=== PATIENT | male | born 1990 | race Caucasian/White ===

== ENCOUNTER 2024-05-07 13:42 | Outpatient (AMB) | payer MEDICAID, SELFPAY ==
[2024-05-07 13:58] VITALS: BP 133/89; PULSE 86; RESP 16; TEMP 36.4; O2SAT 98; BMI 19.9
--- NOTE | 2024-05-07 13:58 | ACNOTE_ITS ---
Vital Signs 05/07/24 13:58 Height 1.7 m Height Method Stated Weight 57.72 kg Weight Measurement Method Standing Scale BMI 19.9 BP 133/89 H Blood Pressure Source Automatic Cuff Blood Pressure Location Left Upper Arm Position Sitting Respiration 16 Pulse 86 Pulse Source Monitor Temp 97.6 F Temp Source Temporal Artery Scan Pulse Oximetry (%) 98 Oxygen Delivery Method Room Air Allergies/Meds Allergies & Medications Allergies No Known Allergies Allergy (Verified 05/07/24 13:59) Medication Reconciliation amlodipine 5 mg tablet 5 mg PO QDAY hypertension #30 tabs 01/02/23 [Rx Confirmed 05/07/24] atorvastatin 80 mg tablet 80 mg PO QHS hyperlipidemia #30 tabs 01/02/23 [Rx Confirmed 05/07/24] flash glucose sensor (ClickDelivery Myriam 2 Sensor kit) #1 ea 01/02/23 [Rx Confirmed 05/07/24] gabapentin 100 mg capsule 100 mg PO TID Peripheral Neuropathy 1 month #90 caps 01/02/23 [Rx Confirmed 05/07/24] metoclopramide HCl 10 mg tablet 10 mg PO TID Gastroparesis #90 tabs 01/02/23 [Rx Confirmed 05/07/24] metoclopramide HCl 10 mg tablet 10 mg PO TID PRN N/V #30 tabs 01/02/23 [Rx Confirmed 05/07/24] metoprolol succinate 25 mg tablet,extended release 24 hr 25 mg PO QDAY Hypertension 1 month #30 tabs 01/02/23 [Rx Confirmed 05/07/24] miscellaneous medical supply (Blood Pressure Cuff) #1 ea 01/02/23 [Rx Confirmed 05/07/24] valsartan 80 mg tablet 80 mg PO QDAY Hypertension #30 tabs 01/02/23 [Rx C onfirmed 05/07/24] ondansetron 4 mg disintegrating tablet 4 mg PO Q6H PRN nausea and vomiting #10 tabs 06/01/23 [Rx Confirmed 05/07/24] blood sugar diagnostic (OneTouch Ultra Test strips) #100 ea 09/12/23 [Rx Confirmed 05/07/24] pen needle, diabetic 31 gauge x 3/16 (Mini Ultra-Thin II) #1,200 ea 09/12/23 [Rx Confirmed 05/07/24] OneTouch Ultra Test (blood sugar diagnostic) #100 ea 09/18/23 [Rx Confirmed 05/07/24] OneTouch Ultra Test (blood sugar diagnostic) #100 ea 10/17/23 [Rx Confirmed 05/07/24] blood-glucose sensor (FreeStyle Myriam 3 Sensor device) #1 ea 10/17/23 [Rx Confirmed 05/07/24] True Metrix Glucose Meter (blood-glucose meter) #1 ea 10/23/23 [Rx Confirmed 05/07/24] blood sugar diagnostic (True Metrix Glucose Test Strip) #100 ea 10/23/23 [Rx Confirmed 05/07/24] blood-glucose meter (Accu-Chek Guide Glucose Meter) #1 ea 11/07/23 [Rx Confirmed 05/07/24] blood sugar diagnostic (Accu-Chek Guide test strips) #100 ea 12/27/23 [Rx Confirmed 05/07/24] insulin aspart U-100 100 unit/mL (3 mL) subcutaneous pen (Novolog FlexPen U-100 Insulin aspart) 1 unit (0.01 mL) subcut TIDACHS Diabetes type 1 #15 mL 05/07/24 [Rx] insulin glargine 100 unit/mL (3 mL) subcutaneous pen (Basaglar KwikPen U-100 Insulin) 15 unit (0.15 mL) subcut QAM Type 1 diabetes mellitus #15 mL 05/07/24 [Rx] terbinafine HCl 250 mg tablet 250 mg PO QDAY 12 weeks #84 tabs 05/07/24 [Rx] MA Intake Visit Data Collection New Patient or Established: Established Patient (seen at [facility] within 3 years) Seen by Clinical Staff ONLY (RN/MA): No Pain Present Currently: No Pain scale:: 0 Pain Scale Used: Kay-Mcbride/Numerical Curatorial Specialist Required: No PCP or OBGYN visit in last 3 months: No Hx Now: No Do You Feel Safe at Home: Yes Authorities Contacted: N/A Smoking Status Smoking Status: Never smoker Immunization / Flu Flu Vaccine in the Last 12 Months: No Flu Vaccine Exclusion Criteria: No Exclusion Criteria Past Medical History Past Medical History NEUROLOGIC: Positive Neurological Disorders and Peripheral Neuropathy (Mild diabetic neropathy); Negative Cerebrovascular Accident, Transient Ischemic Attacks (TIA), Dementia, Alzheimer's Disease, Parkinson's Disease, Brain Tumor, Meningitis, Seizures, Epilepsy, Multiple Sclerosis, Cerebral Palsy, Amyotrophic Lateral Sclerosis (ALS/Ana Gehrig's), Guillain-[place] Syndrome, Spina Bifida, Paralysis, Figueroa's Palsy, Subdural Hematoma, Migraine, Head Trauma, Spinal Cord Injury or Traumatic Brain Injury CARDIAC: Positive Hypertension; Negative Cardiac Disorders, Myocardial Infarction, Cardiac Arrhythmia, Atrial Fibrillation, Angina, Heart Murmur, Coronary Artery Disease, Atherosclerotic Heart Disease, Peripheral Vascular Disease, Hypercholesterolemia, Aneurysm, Congestive Heart Failure, Congenital Heart Disease, Valvular Heart Disease, Rheumatic Fever, Cardiomyopathy, Edema, Pericarditis, Cellulitis, Deep Vein Thrombosis, Hypotension or Varicose Veins RESPIRATORY: Negative Chronic Obstructive Pulmonary Disease (COPD), Asthma, Bronchitis, Emphysema, Pneumonia, Pulmonary Fibrosis, Cystic Fibrosis, Tuberculosis, Pulmonary Embolism, Pulmonary Edema or Sleep Apnea GASTROINTESTINAL: Positive Gastrointestinal Disorders, Esophageal Varices and Gastroesophageal Reflux Disease; Negative Hepatitis, Cirrhosis, Pancreatitis, Celiac Disease, Gall Bladder Disease, Gastrointestinal Bleed, Barahona's Esophagus, Colitis, Ulcerative Colitis, Diverticulitis, Diverticulosis, Ulcer, Colorectal Cancer, Irritable Bowel, Crohn's Disease, Obstructive Bowel, Hiatal Hernia, Hemorrhoids or Obesity GENITOURINARY: Positive Genitourinary Disorders; Negative Renal Disease, Kidney Stones, Polycystic Kidney Disease, Neurogenic Bladder, Inguinal Hernia, Dialysis, Prostate Cancer or Benign Prostatic Hyperpla karson REPRODUCTIVE: Negative Breast Cancer, Genital Herpes, Gonorrhea, Syphilis or Testicular Cancer MUSCULOSKELETAL: Negative Muscular Dystrophy, Myasthenia Gravis, Marfan's Syndrome, Bone Cancer, Arthritis, Rheumatoid Arthritis, Osteoporosis, Degenerative Disk Disease, Gout, Scoliosis, Fibromyalgia, Fractures, Degenerative Joint Disease, Osteomyelitis or Poliovirus ENT: Positive Cataracts; Negative Glaucoma, Blind, Retinal Detachment, Macular Degeneration, Ear Infection, Deafness, Head Trauma or Eye Prosthesis ENDOCRINE: Positive Endocrine Disorders and Diabetes Mellitus Type 1; Negative Diabetes Mellitus Type 2, Hypoglycemia, Payton's Syndrome, Esmeralda's Disease, Hyperthyroidism, Hypothyroidism, Parathyroid Disease, Pituitary Disease, Systemic Lupus Erythematosus, Syndrome of Inappropriate Antidiuretic Hormone (SIADH), Adrenal Disease or Graves' Disease HEMATOLOGIC: Negative Blood Disorders, Anemia, Leukemia, Hemophilia, Thalassemia, Sickle Cell Disease or Clotting Problems PSYCHO/SOCIAL: Positive Recreational Drug Use, Depression and Anxiety; Negative Psychiatric Problems, Schizophrenia, Bipolar Disorder, Behavior Problems, Self-Mutilation, Attention Deficit Disorder, Attention Deficit Hyperactivity Disorder, Depression, Post Traumatic Stress Disorder or Eating Disorder OTHER HISTORY: Positive Hospitalization and Chicken Pox; Negative Down Syndrome, Autism, Developmental Delay, Shingles, Falls, Blood Transfusions, Blood Transfusion Reaction, Anesthesia Reactions, Organ Transplant, Chemotherapy, Radiation Therapy, Hyperbaric Therapy, MRSA, VRSA, Vancomycin-Resistant Enterococci, Human Immunodeficiency Virus (HIV), Measles, Mumps, Rubella (Hungarian Measles), Pertussis, Clostridium Difficile, Breast Cancer, Cervical Cancer, Colorectal Cancer, Lung Cancer, Ovarian Cancer, Prostate Cancer or Testicular Cancer Family History FAMILY HISTORY: Negative Family Psychiatric Problems, Family Respiratory Disorders, Family Cardiac Disorders, Family Gastrointestinal Problems, Family Cancer, Family Surgery or Family Anesthesia Reaction Surgical History SURGICAL: Positive Eye Surgery; Negative Pacemaker, Endocrine Surgery, Thyroidectomy, Ear Surgery, Abdominal Surgery, Nephrectomy, Joint Replacement, Neurologic Surgery, Vasectomy or Organ Transplant Social History SMOKING STATUS: Smoking status: Never smoker SECOND HAND EXPOSURE: second hand exposure: No ALCOHOL: Alcohol Intake: Never ALCOHOL FREQUENCY: Alcohol Intake Frequency: holidays/special occasions only HOUSING: Housing: House LIVES WITH: Lives With: Family Patient Keely Dhillon Social History Living Situation History Housing: House Housing Other:: Patient resides at home with parents. Tobacco History Smoking Status: Never smoker Second Hand Smoke Exposure: No Alcohol History Alcohol Intake: Never Alcohol Intake Frequency: holidays/special occasions only Substance Use History Substance Use: occasional marijuana use Domestic Abuse History Do You Feel Safe at Home: Yes Review of Systems Report any current symptoms Only answer those that you have currently: Past Medical History Past Medical History Have you ever been diagnosed with any of the following: Neurological Problems Cerebrovascular Accident (CVA): No Transient Ischemic Attacks (TIA): No Dementia: No Alzheimer's Disease: No Parkinson's Disease: No Brain Tumor: No Meningitis: No Seizures: No Epilepsy: No Multiple Sclerosis: No Cerebral Palsy: No Amyotrophic Lateral Sclerosis (ALS/Ana Gehrig's): No Guillain-[place] Syndrome: No Spina Bifida: No Paralysis: No Peripheral Neuropathy: Yes (Mild diabetic neropathy) Figueroa's Palsy: No Subdural Hematoma: No Migraine: No Head Trauma: No Spinal Cord Injury: No Traumatic Brain Injury: No Cardiology Problems Myocardial Infarction: No Cardiac Arrhythmia: No Atrial Fibrillation: No Angina: No Heart Murmur: No Coronary Artery Disease: No Atherosclerotic Heart Disease: No Peripheral Vascular Disease: No Hypercholesterolemia: No Aneurysm: No Congestive Heart Failure: No Congenital Heart Disease: No Valvular Heart Disease: No Rheumatic Fever: No Cardiomyopathy: No Edema: No Pericarditis: No Cellulitis: No Deep Vein Thrombosis: No Hypertension: Yes Hypotension: No Varicose Veins: No Respiratory Problems Chronic Obstructive Pulmonary Disease (COPD): No Asthma: No Bronchitis: No Emphysema: No Pneumonia: No Pulmonary Fibrosis: No Tuberculosis: No Pulmonary Embolism: No Pulmonary Edema: No Sleep Apnea: No Stomache/Intestinal Problems Hepatitis: No Cirrhosis: No Pancreatitis: No Celiac Disease: No Gall Bladder Disease: No Gastrointestinal Bleed: No Esophageal Varices: Yes Barahona's Esophagus: No Colitis: No Ulcerative Colitis: No Diverticulitis: No Diverticulosis: No Ulcer: No Colorectal Cancer: No Irritable Bowel: No Crohn's Disease: No Obstructive Bowel: No Hiatal Hernia: No Hemorrhoids: No Gastroesophageal Reflux Disease: Yes Obesity: No Genital/Urinary Problems Renal Disease: No Kidney Stones: No Polycystic Kidney Disease: No Neurogenic Bladder: No Inguinal Hernia: No Dialysis: No Prostate Cancer: No Benign Prostatic Hyperplasia: No Reproductive Problems Breast Cancer: No Genital Herpes: No Gonorrhea: No Syphilis: No Testicular Cancer: No Musculoskeletal Problems Muscular Dystrophy: No Myasthenia Gravis: No Marfan's Syndrome: No Bone Cancer: No Arthritis: No Rheumatoid Arthritis: No Osteoporosis: No Degenerative Disk Disease: No Gout: No Scoliosis: No Fibromyalgia: No Fractures: No Degenerative Joint Disease: No Osteomyelitis: No Poliovirus: No Head,Eye,Nose,Throat Problems Cataracts: Yes Glaucoma: No Blind: No Retinal Detachment: No Macular Degeneration: No Chronic Ear Infections: No Deafness: No Eye Prosthesis: No Endocrine Problems Diabetes Mellitus Type 1: Yes Diabetes Mellitus Type 2: No Hypoglycemia: No Payton's Syndrome: No Esmeralda's Disease: No Hyperthyroidism: No Hypothyroidism: No Parathyroid Disease: No Pituitary Disease: No Systemic Lupus Erythematosus: No Syndrome of Inappropriate Antidiuretic Hormone: No Adrenal Disease: No Graves' Disease: No Blood Problems Anemia: No Leukemia: No Hemophilia: No Thalassemia: No Sickle Cell Disease: No Clotting Problems: No Psychologic Problems Schizophrenia: No Recreational Drug Use: Yes Bipolar Disorder: No Depression: Yes Anxiety: Yes Behavior Problems: No Self-Mutilation: No Attention Deficit Disorder: No Attention Deficit Hyperactivity Disorder: No Depression: No Post Traumatic Stress Disorder: No Eating Disorder: No Other Problems Hospitalization: Yes Down Syndrome: No Autism: No Developmental Delay: No Shingles: No Falls: No Blood Transfusions: No Blood Transfusion Reaction: No Anesthesia Reactions: No Organ Transplant: No Chemotherapy: No Radiation Therapy: No Hyperbaric Therapy: No MRSA: No VRSA: No Vancomycin-Resistant Enterococci: No Human Immunodeficiency Virus (HIV): No Chicken Pox: Yes Measles: No Mumps: No Rubella (Hungarian Measles): No Pertussis: No Clostridium Difficile: No Cervical Cancer: No Lung Cancer: No Ovarian Cancer: No Surgical History Pacemaker: No Thyroidectomy: No History of Present Illness HPI Narrative Meek Lyon is a 34-year-old male with past medical history of hypertension, type 1 diabetes mellitus, gastroparesis, and CKD stage IIIb who presents to [facility] on 05/07 for medication refills. Last follow-up was on 09/2023 for the same and states that he had moved out of town but had recently moved back. Current regimen is 15 units of Basaglar in the morning and 1 unit NovoLog every 20 g of carbohydrates (previously 1:10). Continues to utilize Affine 3 CGM and phone summer showed A1c of 7.4% with time in range of 63% over the last 3 months. Otherwise, he states that he would like to follow-up with Dr. Sorensen as she was managing his blood pressure given his CKD and will send referral to establish care. He does state that he has had fungal infection of bilateral feet for a long time. Thus, will send referral to bullard operator and antifungal cream. States that he also follows up with an hand button splitter yearly. Review of Systems Review of Systems Systems Reviewed: All systems reviewed, normal except as documented Objective/Exam Narrative Physical exam: General: AOx3, no acute distress, able to speak full sentences HEENT: NC/AT, mucous membranes moist, bilateral sclera anicteric Cardiovascular: regular rate and rhythm, S1/S2 present, no murmurs appreciated Pulmonary: clear to auscultation bilaterally, no rales/rhonchi/wheezes Abdominal: soft, non-tender, non-distended, no rebound/guarding, normal bowel sounds present Musculoskeletal: onychomycosis seen on all toenails bilaterally, normal ROM, no peripheral edema Skin: warm and dry, intact Neuro: CN II-XII intact, no focal deficits Assessment & Plan Diagnosis / Problem List (1) Type 1 diabetes mellitus: Status: Acute Qualifiers: Chronic kidney disease stage: stage 3 (moderate) Chronic kidney disease stage 3 subtype: stage 3a (GFR 45-59) Diabetes mellitus complication detail: with chronic kidney disease Diabetes mellitus complication status: with kidney complications Qualified Code(s): E10.22 - Type 1 diabetes mellitus with diabetic chronic kidney disease; N18.31 - Chronic kidney disease, stage 3a Assessment & Plan: Mr. Lyon noted to have A1c as high as 15.4% dating back to 2018 and I significantly improved to 7.4% within the last few months on current regimen with freestyle myriam 3. Plan: ? 15 units Basaglar every a.m. ? 1 unit NovoLog for every 20 g of carbohydrates (2) Chronic kidney disease: Status: Chronic Qualifiers: Chronic kidney disease stage: stage 4 (severe) Qualified Code(s): N18.4 - Chronic kidney disease, stage 4 (severe) Plan: ? Follow-up referral with coating manager, Dr. Sorensen ? Follow-up CMP and urine panel (3) Hypertension: Status: Chronic Qualifiers: Hypertension type: unspecified Qualified Code(s): I10 - Essential (primary) hypertension Plan: ? Continue metoprolol 25 mg p.o. daily ? Continue valsartan 80 mg p.o. daily (4) Onychomycosis: Status: Acute Plan: ? Terbinafine 250 mg p.o. daily for 12 weeks ? Podiatry consult Orders: Referrals Nephrology Podiatry Additional Assessment Internal Medicine Attending Note: Case discussed with and agree with note and management plan of Resident Physician as per Resident's Note above. Issues of concern for present visit are as follows: Follow-up visit. Patient not seen in approximately 7 months, had left town but has returned. Diabetes self-care reviewed including diet, exercise, footcare, eye care. Continuous glucose monitor shows hemoglobin A1c of 7.4 with time within range of approximately 63% over the last 3 months. History of CKD, we will rerefer patient to nephrology that he was seen before. Notes fungal changes on feet, we will treat with topical antifungal. We will make referral to podiatry as would benefit from diabetic foot care as well as potential culturing of nails. We will empirically start terbinafine for onychomycosis in the meantime. Will need optometry/ophthalmology follow-up. Check labs. Patient continued on current antihypertensives including metoprolol and valsartan. Camron Braga MD Physician Billing Established Patient Established Patient: E/M Level 3-CPT 52097 Office Procedures [facility] Level of Care Nursing/Assessment Patient Status: Established Patient Nursing Assessment/Reassessment: Medication Reconciliation, Update PMH in EMR and Vital Signs Coordination of Care: Complex Care and Chronic Disease 1-5, Consent,records obtained, informed consent, Education Simp Pt/Fam, Lab and Imaging orders and Staff clarify orders Established Patient Charge Established Patient Point Assignment: 100 Established Patient Point Charge: Level 3 (80-115)
== END 2024-05-07 14:44 | disposition home or self-care (01) ==
LOC: HODAHC 13:42
PROVIDERS: Supervising Provider Internal Medicine
DX: E10.22 Type 1 diabetes mellitus with diabetic chronic kidney disease (principal); I12.9 Hypertensive chronic kidney disease with stage 1 through stage 4 chronic kidney disease, or unspecified chronic kidney disease; N18.4 Chronic kidney disease, stage 4 (severe); Z79.4 Long term (current) use of insulin; Z76.0 Encounter for issue of repeat prescription; B35.1 Tinea unguium
CPT/HCPCS: 99213; G0463

== ENCOUNTER 2024-05-28 13:47 | Outpatient (AMB) | payer MEDICAID, SELFPAY ==
--- NOTE | 2024-05-28 13:49 | ACNOTE_ITS ---
Vital Signs 05/28/24 13:53 Height 1.7 m Height Method Stated Weight 56.359 kg Weight Measurement Method Standing Scale BMI 19.4 BP 116/73 Blood Pressure Source Automatic Cuff Blood Pressure Location Left Upper Arm Position Sitting Respiration 16 Pulse 85 Pulse Source Monitor Temp 98.1 F Temp Source Temporal Artery Scan Pulse Oximetry (%) 98 Oxygen Delivery Method Room Air Allergies/Meds Allergies & Medications Allergies No Known Allergies Allergy (Verified 05/28/24 13:50) Medication Reconciliation amlodipine 5 mg tablet 5 mg PO QDAY hypertension #30 tabs 01/02/23 [Rx Confirmed 05/28/24] atorvastatin 80 mg tablet 80 mg PO QHS hyperlipidemia #30 tabs 01/02/23 [Rx Confirmed 05/28/24] flash glucose sensor (Foodista Myriam 2 Sensor kit) #1 ea 01/02/23 [Rx Confirmed 05/28/24] gabapentin 100 mg capsule 100 mg PO TID Peripheral Neuropathy 1 month #90 caps 01/02/23 [Rx Confirmed 05/28/24] metoclopramide HCl 10 mg tablet 10 mg PO TID Gastroparesis #90 tabs 01/02/23 [Rx Confirmed 05/28/24] metoclopramide HCl 10 mg tablet 10 mg PO TID PRN N/V #30 tabs 01/02/23 [Rx Confirmed 05/28/24] metoprolol succinate 25 mg tablet,extended release 24 hr 25 mg PO QDAY Hypertension 1 month #30 tabs 01/02/23 [Rx Confirmed 05/28/24] miscellaneous medical supply (Blood Pressure Cuff) #1 ea 01/02/23 [Rx Confirmed 05/28/24] valsartan 80 mg tablet 80 mg PO QDAY Hypertension #30 tabs 01/02/23 [Rx Co nfirmed 05/28/24] ondansetron 4 mg disintegrating tablet 4 mg PO Q6H PRN nausea and vomiting #10 tabs 06/01/23 [Rx Confirmed 05/28/24] blood sugar diagnostic (OneTouch Ultra Test strips) #100 ea 09/12/23 [Rx Confirmed 05/28/24] pen needle, diabetic 31 gauge x 3/16 (Mini Ultra-Thin II) #1,200 ea 09/12/23 [Rx Confirmed 05/28/24] OneTouch Ultra Test (blood sugar diagnostic) #100 ea 09/18/23 [Rx Confirmed 05/28/24] OneTouch Ultra Test (blood sugar diagnostic) #100 ea 10/17/23 [Rx Confirmed 05/28/24] blood-glucose sensor (FreeStyle Myriam 3 Sensor device) #1 ea 10/17/23 [Rx Confirmed 05/28/24] True Metrix Glucose Meter (blood-glucose meter) #1 ea 10/23/23 [Rx Confirmed 05/28/24] blood sugar diagnostic (True Metrix Glucose Test Strip) #100 ea 10/23/23 [Rx Confirmed 05/28/24] blood-glucose meter (Accu-Chek Guide Glucose Meter) #1 ea 11/07/23 [Rx Confirmed 05/28/24] blood sugar diagnostic (Accu-Chek Guide test strips) #100 ea 12/27/23 [Rx Confirmed 05/28/24] insulin aspart U-100 100 unit/mL (3 mL) subcutaneous pen (Novolog FlexPen U-100 Insulin aspart) 1 unit (0.01 mL) subcut TIDACHS Diabetes type 1 #15 mL 05/07/24 [Rx Confirmed 05/28/24] insulin glargine 100 unit/mL (3 mL) subcutaneous pen (Basaglar KwikPen U-100 Insulin) 15 unit (0.15 mL) subcut QAM Type 1 diabetes mellitus #15 mL 05/07/24 [Rx Confirmed 05/28/24] terbinafine HCl 250 mg tablet 250 mg PO QDAY 12 weeks #84 tabs 05/07/24 [Rx Confirmed 05/28/24] MA Intake Visit Data Collection New Patient or Established: Established Patient (seen at [facility] within 3 years) Seen by Clinical Staff ONLY (RN/MA): No Pain Present Currently: No Pain scale:: 0 Pain Scale Used: Kay-Mcbride/Numerical Quick Print Operator Required: No PCP or OBGYN visit in last 3 months: No Hx Now: No Do You Feel Safe at Home: Yes Authorities Contacted: N/A Smoking Status Smoking Status: Never smoker Immunization / Flu Flu Vaccine in the Last 12 Months: No Flu Vaccine Exclusion Criteria: No Exclusion Criteria Past Medical History Past Medical History NEUROLOGIC: Positive Neurological Disorders and Peripheral Neuropathy (Mild diabetic neropathy); Negative Cerebrovascular Accident, Transient Ischemic Attacks (TIA), Dementia, Alzheimer's Disease, Parkinson's Disease, Brain Tumor, Meningitis, Seizures, Epilepsy, Multiple Sclerosis, Cerebral Palsy, Amyotrophic Lateral Sclerosis (ALS/Ana Gehrig's), Guillain-Woolwine Syndrome, Spina Bifida, Paralysis, Figueroa's Palsy, Subdural Hematoma, Migraine, Head Trauma, Spinal Cord Injury or Traumatic Brain Injury CARDIAC: Positive Hypertension; Negative Cardiac Disorders, Myocardial Infarction, Cardiac Arrhythmia, Atrial Fibrillation, Angina, Heart Murmur, Coronary Artery Disease, Atherosclerotic Heart Disease, Peripheral Vascular Disease, Hypercholesterolemia, Aneurysm, Congestive Heart Failure, Congenital Heart Disease, Valvular Heart Disease, Rheumatic Fever, Cardiomyopathy, Edema, Pericarditis, Cellulitis, Deep Vein Thrombosis, Hypotension or Varicose Veins RESPIRATORY: Negative Chronic Obstructive Pulmonary Disease (COPD), Asthma, Bronchitis, Emphysema, Pneumonia, Pulmonary Fibrosis, Cystic Fibrosis, Tuberculosis, Pulmonary Embolism, Pulmonary Edema or Sleep Apnea GASTROINTESTINAL: Positive Gastrointestinal Disorders, Esophageal Varices and Gastroesophageal Reflux Disease; Negative Hepatitis, Cirrhosis, Pancreatitis, Celiac Disease, Gall Bladder Disease, Gastrointestinal Bleed, Barahona's Esophagus, Colitis, Ulcerative Colitis, Diverticulitis, Diverticulosis, Ulcer, Colorectal Cancer, Irritable Bowel, Crohn's Disease, Obstructive Bowel, Hiatal Hernia, Hemorrhoids or Obesity GENITOURINARY: Positive Genitourinary Disorders; Negative Renal Disease, Kidney Stones, Polycystic Kidney Disease, Neurogenic Bladder, Inguinal Hernia, Dialysis, Prostate Cancer or Benign Prostatic Hyperplasia REPRODUCTIVE: Negative Breast Cancer, Genital Herpes, Gonorrhea, Syphilis or Testicular Cancer MUSCULOSKELETAL: Negative Muscular Dystrophy, Myasthenia Gravis, Marfan's Syndrome, Bone Cancer, Arthritis, Rheumatoid Arthritis, Osteoporosis, Degenerative Disk Disease, Gout, Scoliosis, Fibromyalgia, Fractures, Degenerative Joint Disease, Osteomyelitis or Poliovirus ENT: Positive Cataracts; Negative Glaucoma, Blind, Retinal Detachment, Macular Degeneration, Ear Infection, Deafness, Head Trauma or Eye Prosthesis ENDOCRINE: Positive Endocrine Disorders and Diabetes Mellitus Type 1; Negative Diabetes Mellitus Type 2, Hypoglycemia, Payton's Syndrome, Callahan's Disease, Hyperthyroidism, Hypothyroidism, Parathyroid Disease, Pituitary Dise ase, Systemic Lupus Erythematosus, Syndrome of Inappropriate Antidiuretic Hormone (SIADH), Adrenal Disease or Graves' Disease HEMATOLOGIC: Negative Blood Disorders, Anemia, Leukemia, Hemophilia, Thala ssemia, Sickle Cell Disease or Clotting Problems PSYCHO/SOCIAL: Positive Recreational Drug Use, Depression and Anxiety; Negative Psychiatric Problems, Schizophrenia, Bipolar Disorder, Behavior Proble ms, Self-Mutilation, Attention Deficit Disorder, Attention Deficit Hyperactivity Disorder, Depression, Post Traumatic Stress Disorder or Eating Disorder OTHER HISTORY: Positive Hospitalization and Chicken Pox; Negative Down Syndrome, Autism, Developmental Delay, Shingles, Falls, Blood Transfusions, Blood Transfusion Reaction, Anesthesia Reactions, Organ Transplant, Chemotherapy, Radiation Therapy, Hyperbaric Therapy, MRSA, VRSA, Vancomycin-Resistant Enterococci, Human Immunodeficiency Virus (HIV), Measles, Mumps, Rubella (Chilean Measles), Pertussis, Clostridium Difficile, Breast Ca ncer, Cervical Cancer, Colorectal Cancer, Lung Cancer, Ovarian Cancer, Prostate Cancer or Testicular Cancer Family History FAMILY HISTORY: Negative Family Psychiatric Problems, Family Respiratory Disorders, Family Cardiac Disorders, Family Gastrointestinal Problems, Family Cancer, Family Surgery or Family Anesthesia Reaction Surgical History SURGICAL: Positive Eye Surgery; Negative Pacemaker, Endocrine Surgery, Thyroidectomy, Ear Surgery, Abdominal Surgery, Nephrectomy, Joint Replacement, Neurologic Surgery, Vasectomy or Organ Transplant Social History SMOKING STATUS: Smoking status: Never smoker SECOND HAND EXPOSURE: second hand exposure: No ALCOHOL: Alcohol Intake: Never ALCOHOL FREQUENCY: Alcohol Intake Frequency: holidays/special occasions only HOUSING: Housing: House LIVES WITH: Lives With: Family Patient Portal Jacquie Social History Living Situation History Housing: House Housing Other:: Patient resides at home with parents. Tobacco History Smoking Status: Never smoker Second Hand Smoke Exposure: No Alcohol History Alcohol Intake: Never Alcohol Intake Frequency: holidays/special occasions only Substance Use History Substance Use: occasional marijuana use Domestic Abuse History Do You Feel Safe at Home: Yes Review of Systems Report any current symptoms Only answer those that you have currently: Past Medical History Past Medical History Have you ever been diagnosed with any of the following: Neurological Problems Cerebrovascular Accident (CVA): No Transient Ischemic Attacks (TIA): No Dementia: No Alzheimer's Disease: No Parkinson's Disease: No Brain Tumor: No Meningitis: No Seizures: No Epilepsy: No Multiple Sclerosis: No Cerebral Palsy: No Amyotrophic Lateral Sclerosis (ALS/Ana Gehrig's): No Guillain-Woolwine Syndrome: No Spina Bifida: No Paralysis: No Peripheral Neuropathy: Yes (Mild diabetic neropathy) Figueroa's Palsy: No Subdural Hematoma: No Migraine: No Head Trauma: No Spinal Cord Injury: No Traumatic Brain Injury: No Cardiology Problems Myocardial Infarction: No Cardiac Arrhythmia: No Atrial Fibrillation: No Angina: No Heart Murmur: No Coronary Artery Disease: No Atherosclerotic Heart Disease: No Peripheral Vascular Disease: No Hypercholesterolemia: No Aneurysm: No Congestive Heart Failure: No Congenital Heart Disease: No Valvular Heart Disease: No Rheumatic Fever: No Cardiomyopathy: No Edema: No Pericarditis: No Cellulitis: No Deep Vein Thrombosis: No Hypertension: Yes Hypotension: No Varicose Veins: No Respiratory Problems Chronic Obstructive Pulmonary Disease (COPD): No Asthma: No Bronchitis: No Emphysema: No Pneumonia: No Pulmonary Fibrosis: No Tuberculosis: No Pulmonary Embolism: No Pulmonary Edema: No Sleep Apnea: No Stomache/Intestinal Problems Hepatitis: No Cirrhosis: No Pancreatitis: No Celiac Disease: No Gall Bladder Disease: No Gastrointestinal Bleed: No Esophageal Varices: Yes Barahona's Esophagus: No Colitis: No Ulcerative Colitis: No Diverticulitis: No Diverticulosis: No Ulcer: No Colorectal Cancer: No Irritable Bowel: No Crohn's Disease: No Obstructive Bowel: No Hiatal Hernia: No Hemorrhoids: No Gastroesophageal Reflux Disease: Yes Obesity: No Genital/Urinary Problems Renal Disease: No Kidney Stones: No Polycystic Kidney Disease: No Neurogenic Bladder: No Inguinal Hernia: No Dialysis: No Prostate Cancer: No Benign Prostatic Hyperplasia: No Reproductive Problems Breast Cancer: No Genital Herpes: No Gonorrhea: No Syphilis: No Testicular Cancer: No Musculoskeletal Problems Muscular Dystrophy: No Myasthenia Gravis: No Marfan's Syndrome: No Bone Cancer: No Arthritis: No Rheumatoid Arthritis: No Osteoporosis: No Degenerative Disk Disease: No Gout: No Scoliosis: No Fibromyalgia: No Fractures: No Degenerative Joint Disease: No Osteomyelitis: No Poliovirus: No Head,Eye,Nose,Throat Problems Cataracts: Yes Glaucoma: No Blind: No Retinal Detachment: No Macular Degeneration: No Chronic Ear Infections: No Deafness: No Eye Prosthesis: No Endocrine Problems Diabetes Mellitus Type 1: Yes Diabetes Mellitus Type 2: No Hypoglycemia: No Payton's Syndrome: No Callahan's Disease: No Hyperthyroidism: No Hypothyroidism: No Parathyroid Disease: No Pituitary Disease: No Systemic Lupus Erythematosus: No Syndrome of Inappropriate Antidiuretic Hormone: No Adrenal Disease: No Graves' Disease: No Blood Problems Anemia: No Leukemia: No Hemophilia: No Thalassemia: No Sickle Cell Disease: No Clotting Problems: No Psychologic Problems Schizophrenia: No Recreational Drug Use: Yes Bipolar Disorder: No Depression: Yes Anxiety: Yes Behavior Problems: No Self-Mutilation: No Attention Deficit Disorder: No Attention Deficit Hyperactivity Disorder: No Depression: No Post Traumatic Stress Disorder: No Eating Disorder: No Other Problems Hospitalization: Yes Down Syndrome: No Autism: No Developmental Delay: No Shingles: No Falls: No Blood Transfusions: No Blood Transfusion Reaction: No Anesthesia Reactions: No Organ Transplant: No Chemotherapy: No Radiation Therapy: No Hyperbaric Therapy: No MRSA: No VRSA: No Vancomycin-Resistant Enterococci: No Human Immunodeficiency Virus (HIV): No Chicken Pox: Yes Measles: No Mumps: No Rubella (Chilean Measles): No Pertussis: No Clostridium Difficile: No Cervical Cancer: No Lung Cancer: No Ovarian Cancer: No Surgical History Pacemaker: No Thyroidectomy: No History of Present Illness HPI Narrative Meek Lyon is a 34-year-old male with past medical history of hypertension, type 1 diabetes mellitus on CGM, gastroparesis, and CKD stage IV who presents to [facility] on 05/29 for lab follow-up. 05/07: Last follow-up was on 09/2023 for the same and states that he had moved out of town but had recently moved back. Insulin regimen of 15 units Basaglar in morning and 1 unit NovoLog every 20 g of carbohydrates (previously 1:10). Continues to utilize freestyle myriam 3 CGM and phone summer showed A1c of 7.4% with time in range of 63% over the last 3 months. Otherwise, he states that he would like to follow-up with Dr. Sorensen as she was managing his blood pressure given his CKD and will send referral to establish care. He does state that he has had fungal infection of bilateral feet for a long time. Thus, will send referral to air traffic instructor and antifungal rx. States that he also follows up with an dance therapist yearly. 05/29: Does not have any new complaints at this time. States that he continues to have gastroparesis and eats one meal on most days, and is already consuming small caliber meals. Has been complaint with his medications, including terbinafine for onychomycosis but does not report much improvement. States that he has not heard from Dr. Sorensen's office or podiatry. Otherwise, labs reviewed and noted discrepancy between A1c on CHEM panel and freestyle myriam 3 summer of 9.3% and 7.6% respectively. Time in range continues to be 65% over the last 3 months. Additionally, potassium noted to be 6.3 and asked patient to obtain repeat labs to confirm hyperkalemia and to call office afterwards to allow for prompt follow-up and management if potassium remains elevated. Review of Systems Review of Systems Systems Reviewed: All systems reviewed, normal except as documented Objective/Exam Narrative Physical exam: General: AOx3, no acute distress, appears underweight HEENT: NC/AT, mucous membranes moist, bilateral sclera anicteric Cardiovascular: regular rate and rhythm, S1/S2 present, no murmurs appreciated Pulmonary: clear to auscultation bilaterally, no rales/rhonchi/wheezes Abdominal: soft, non-tender, non-distended, no rebound/guarding, normal bowel sounds present Musculoskeletal: onychomycosis seen on all toenails bilaterally, normal ROM, no peripheral edema Skin: warm and dry, intact Neuro: CN II-XII intact, no focal deficits Assessment & Plan Diagnosis / Problem List (1) Type 1 diabetes mellitus: Status: Acute Qualifiers: Chronic kidney disease stage: stage 3 (moderate) Chronic kidney disease stage 3 subtype: stage 3a (GFR 45-59) Diabetes mellitus complication detail: with chronic kidney disease Diabetes mellitus complication status: with kidney complications Qualified Code(s): E10.22 - Type 1 diabetes mellitus with diabetic chronic kidney disease; N18.31 - Chronic kidney disease, stage 3a Assessment & Plan: Mr. Lyon noted to have A1c as high as 15.4% dating back to 2018 and I significantly improved to 7.4% within the last few months on current regimen with freestyle myriam 3. Plan: ? Increasing glargine by 1 unit for two days, and if tolerable, increase by another 1 unit for a total of 17 units Basaglar every a.m. ? 1 unit NovoLog for every 20 g of carbohydrates (2) Onychomycosis: Status: Acute Plan: ? Terbinafine 250 mg p.o. daily for total of 12 weeks ? Pending podiatry consult (3) Chronic kidney disease: Status: Chronic Qualifiers: Chronic kidney disease stage: stage 4 (severe) Qualified Code(s): N18.4 - Chronic kidney disease, stage 4 (severe) Plan: ? Follow-up referral with broadcast operations engineer, Dr. Sorensen (4) Gastroparesis: Status: Acute Plan: ? Continue metoclopramide 10 mg TID PRN ? Continue ondansetron 4 mg q6h PRN (5) Hyperkalemia: Status: Acute Assessment & Plan: K noted to be 6.3 on CMP obtained on 05/26. Instructed patient to obtain another chem panel and to follow-up on K and will manage accordingly depending on results. Plan: ? Follow-up BMP for potassium ? Instructed patient to call office after he obtains labs so we can follow-up and manage accordingly (6) Hypertension: Status: Chronic Qualifiers: Hypertension type: unspecified Qualified Code(s): I10 - Essential (primary) hypertension Plan: ? Continue metoprolol 25 mg p.o. daily ? Continue valsartan 80 mg p.o. daily Additional Assessment Office Procedures [facility] Level of Care Nursing/Assessment Patient Status: Established Patient Nursing Assessment/Reassessment: Medication Reconciliation, Update PMH in EMR and Vital Signs Coordination of Care: Complex Care and Chronic Disease 1-5, Consent,records obtained, informed consent, Education Simp Pt/Fam and Staff clarify orders Established Patient Charge Established Patient Point Assignment: 85 Established Patient Point Charge: EP Level 3 (80-115)
[2024-05-28 13:53] VITALS: BP 116/73; PULSE 85; RESP 16; TEMP 36.7; O2SAT 98; BMI 19.4
== END 2024-05-28 15:19 | disposition home or self-care (01) ==
LOC: HODAHC 13:47
PROVIDERS: Supervising Provider Internal Medicine
DX: E10.43 Type 1 diabetes mellitus with diabetic autonomic (poly)neuropathy (principal); K31.84 Gastroparesis; E10.22 Type 1 diabetes mellitus with diabetic chronic kidney disease; I12.9 Hypertensive chronic kidney disease with stage 1 through stage 4 chronic kidney disease, or unspecified chronic kidney disease; N18.4 Chronic kidney disease, stage 4 (severe); Z79.4 Long term (current) use of insulin; E87.5 Hyperkalemia
CPT/HCPCS: 99213; G0463

== ENCOUNTER 2024-06-05 14:27 | Emergency (ER) | payer MEDICAID, SELFPAY ==
--- NOTE | 2024-06-05 14:57 | PC.NURSE ---
called for pt from lobby/outside, no answerx1@ [id number]
--- NOTE | 2024-06-05 15:20 | PC.NURSE ---
called for pt from lobby/outside, no answerx2@ [id number]
== END 2024-06-05 15:55 | disposition left against medical advice (07) ==
PROVIDERS: Emergency Provider Emergency Medicine
DX: Z53.21 Procedure and treatment not carried out due to patient leaving prior to being seen by health care provider (principal)

== ENCOUNTER 2024-07-02 13:46 | Outpatient (AMB) | payer MEDICAID, SELFPAY ==
[2024-07-02 15:22] VITALS: BP 120/84; PULSE 67; RESP 18; TEMP 36.8; O2SAT 98; BMI 19.5
--- NOTE | 2024-07-02 18:58 | PD.RESCLINIC ---
Vital Signs 07/02/24 15:22 Height 1.7 m Height Method Stated Weight 56.359 kg Weight Measurement Method Standing Scale BMI 19.5 BP 120/84 Blood Pressure Source Automatic Cuff Blood Pressure Location Right Upper Arm Position Sitting Respiration 18 Pulse 67 Pulse Source Monitor Temp 98.2 F Temp Source Temporal Artery Scan Pulse Oximetry (%) 98 Oxygen Delivery Method Room Air Allergies/Meds Allergies & Medications Allergies No Known Allergies Allergy (Verified 07/07/24 11:22) Medication Reconciliation amlodipine 5 mg tablet 5 mg PO QDAY hypertension #30 tabs 01/02/23 [Rx Confirmed 07/03/24] atorvastatin 80 mg tablet 80 mg PO QHS hyperlipidemia #30 tabs 01/02/23 [Rx Confirmed 07/03/24] flash glucose sensor ([employer] Myriam 2 Sensor kit) #1 ea 01/02/23 [Rx Confirmed 07/03/24] gabapentin 100 mg capsule 100 mg PO TID Peripheral Neuropathy 1 month #90 caps 01/02/23 [Rx Confirmed 07/03/24] metoclopramide HCl 10 mg tablet 10 mg PO TID Gastroparesis #90 tabs 01/02/23 [Rx Confirmed 07/03/24] metoclopramide HCl 10 mg tablet 10 mg PO TID PRN N/V #30 tabs 01/02/23 [Rx Confirmed 07/03/24] metoprolol succinate 25 mg tablet,extended release 24 hr 25 mg PO QDAY Hypertension 1 month #30 tabs 01/02/23 [Rx Confirmed 07/03/24] miscellaneous medical supply (Blood Pressure Cuff) #1 ea 01/02/23 [Rx Confirmed 07/03/24] valsartan 80 mg tablet 80 mg PO QDAY Hypertension #30 tabs 01/02/23 [Rx Confirmed 07/03/24] ondansetron 4 mg disintegrating tablet 4 mg PO Q6H PRN nausea and vomiting #10 tabs 06/01/23 [Rx Confirmed 07/03/24] blood sugar diagnostic (OneTouch Ultra Test strips) #100 ea 09/12/23 [Rx Confirmed 07/03/24] pen needle, diabetic 31 gauge x 3/16 (Mini Ultra-Thin II) #1,200 ea 09/12/23 [Rx Confirmed 07/03/24] OneTouch Ultra Test (blood sugar diagnostic) #100 ea 09/18/23 [Rx Confirmed 07/03/24] OneTouch Ultra Test (blood sugar diagnostic) #100 ea 10/17/23 [Rx Confirmed 07/03/24] blood-glucose sensor (FreeStyle Myriam 3 Sensor device) #1 ea 10/17/23 [Rx Confirmed 07/03/24] True Metrix Glucose Meter (blood-glucose meter) #1 ea 10/23/23 [Rx Confirmed 07/03/24] blood sugar diagnostic (True Metrix Glucose Test Strip) #100 ea 10/23/23 [Rx Confirmed 07/03/24] blood-glucose meter (Accu-Chek Guide Glucose Meter) #1 ea 11/07/23 [Rx Confirmed 07/03/24] blood sugar diagnostic (Accu-Chek Guide test strips) #100 ea 12/27/23 [Rx Confirmed 07/03/24] insulin aspart U-100 100 unit/mL (3 mL) subcutaneous pen (Novolog FlexPen U-100 Insulin aspart) 1 unit (0.01 mL) subcut TIDACHS Diabetes type 1 #15 mL 05/07/24 [Rx Confirmed 07/03/24] insulin glargine 100 unit/mL (3 mL) subcutaneous pen (Basaglar KwikPen U-100 Insulin) 15 unit (0.15 mL) subcut QAM Type 1 diabetes mellitus #15 mL 05/07/24 [Rx Confirmed 07/03/24] terbinafine HCl 250 mg tablet 250 mg PO QDAY 12 weeks #84 tabs 05/07/24 [Rx Confirmed 07/03/24] MA Intake Visit Data Collection New Patient or Established: Established Patient (seen at [facility] within 3 years) Seen by Clinical Staff ONLY (RN/MA): No Pain Present Currently: No Pain scale:: 0 Pain Scale Used: Kay-Mcbride/Numerical Assistant Men'S Lacrosse Coach Required: No PCP or OBGYN visit in last 3 months: No Hx Now: No Do You Feel Safe at Home: Yes Authorities Contacted: N/A Smoking Status Smoking Status: Never smoker Immunization / Flu Flu Vaccine in the Last 12 Months: No Flu Vaccine Exclusion Criteria: Refused by Patient Past Medical History Past Medical History NEUROLOGIC: Positive Neurological Disorders and Peripheral Neuropathy (Mild diabetic neropathy); Negative Cerebrovascular Accident, Transient Ischemic Attacks (TIA), Dementia, Alzheimer's Disease, Parkinson's Disease, Brain Tumor, Meningitis, Seizures, Epilepsy, Multiple Sclerosis, Cerebral Palsy, Amyotrophic Lateral Sclerosis (ALS/Ana Gehrig's), Guillain-[place] Syndrome, Spina Bifida, Paralysis, Figueroa's Palsy, Subdural Hematoma, Migraine, Head Trauma, Spinal Cord Injury or Traumatic Brain Injury CARDIAC: Positive Hypertension; Negative Cardiac Disorders, Myocardial Infarction, Cardiac Arrhythmia, Atrial Fibrillation, Angina, Heart Murmur, Coronary Artery Disease, Atherosclerotic Heart Disease, Peripheral Vascular Disease, Hypercholesterolemia, Aneurysm, Congestive Heart Failure, Congenital Heart Disease, Valvular Heart Disease, Rheumatic Fever, Cardiomyopathy, Edema, Pericarditis, Cellulitis, Deep Vein Thrombosis, Hypotension or Varicose Veins RESPIRATORY: Negative Chronic Obstructive Pulmonary Disease (COPD), Asthma, Bronchitis, Emphysema, Pneumonia, Pulmonary Fibrosis, Cystic Fibrosis, Tuberculosis, Pulmonary Embolism, Pulmonary Edema or Sleep Apnea GASTROINTESTINAL: Positive Gastrointestinal Disorders, Esophageal Varices and Gastroesophageal Reflux Disease; Negative Hepatitis, Cirrhosis, Pancreatitis, Celiac Disease, Gall Bladder Disease, Gastrointestinal Bleed, Barahona's Esophagus, Colitis, Ulcerative Colitis, Diverticulitis, Diverticulosis, Ulcer, Colorectal Cancer, Irritable Bowel, Crohn's Disease, Obstructive Bowel, Hiatal Hernia, Hemorrhoids or Obesity GENITOURINARY: Positive Genitourinary Disorders; Negative Renal Disease, Kidney Stones, Polycystic Kidney Disease, Neurogenic Bladder, Inguinal Hernia, Dialysis, Prostate Cancer or Benign Prostatic Hyperplasia REPRODUCTIVE: Negative Breast Cancer, Genital Herpes, Gonorrhea, Syphilis or Testicular Cancer MUSCULOSKELETAL: Negative Muscular Dystrophy, Myasthenia Gravis, Marfan's Syndrome, Bone Cancer, Arthritis, Rheumatoid Arthritis, Osteoporosis, Degenerative Disk Disease, Gout, Scoliosis, Fibromyalgia, Fractures, Degenerative Joint Disease, Osteomyelitis or Poliovirus ENT: Positive Cataracts; Negative Glaucoma, Blind, Retinal Detachment, Macular Degeneration, Ear Infection, Deafness, Head Trauma or Eye Prosthesis ENDOCRINE: Positive Endocrine Disorders and Diabetes Mellitus Type 1; Negative Diabetes Mellitus Type 2, Hypoglycemia, Payton's Syndrome, [place]'s Disease, Hyperthyroidism, Hypothyroidism, Parathyroid Disease, Pituitary Disease, Systemic Lupus Erythematosus, Syndrome of Inappropriate Antidiuretic Hormone (SIADH), Adrenal Disease or Graves' Disease HEMATOLOGIC: Negative Blood Disorders, Anemia, Leukemia, Hemophilia, Thalassemia, Sickle Cell Disease or Clotting Problems PSYCHO/SOCIAL: Positive Recreational Drug Use, Depression and Anxiety; Negative Psychiatric Problems, Schizophrenia, Bipolar Disorder, Behavior Problems, Self-Mutilation, Attention Deficit Disorder, Attention Deficit Hyperactivity Disorder, Depression, Post Traumatic Stress Disorder or Eating Disorder OTHER HISTORY: Positive Hospitalization and Chicken Pox; Negative Down Syndrome, Autism, Developmental Delay, Shingles, Falls, Blood Transfusions, Blood Transfusion Reaction, Anesthesia Reactions, Organ Transplant, Chemotherapy, Radiation Therapy, Hyperbaric Therapy, MRSA, VRSA, Vancomycin-Resistant Enterococci, Human Immunodeficiency Virus (HIV), Measles, Mumps, Rubella (Afghan Measles), Pertussis, Clostridium Difficile, Breast Cancer, Colorectal Cancer, Lung Cancer, Prostate Cancer or Testicular Cancer Family History FAMILY HISTORY: Negative Family Psychiatric Problems, Family Respiratory Disorders, Family Cardiac Disorders, Family Gastrointestinal Problems, Family Cancer, Family Surgery or Family Anesthesia Reaction Surgical History SURGICAL: Positive Eye Surgery; Negative Pacemaker, Endocrine Surgery, Thyroidectomy, Ear Surgery, Abdominal Surgery, Nephrectomy, Joint Replacement, Neurologic Surgery, Vasectomy or Organ Transplant Social History SMOKING STATUS: Smoking status: Never smoker SECOND HAND EXPOSURE: second hand exposure: No ALCOHOL: Alcohol Intake: Never ALCOHOL FREQUENCY: Alcohol Intake Frequency: holidays/special occasions only HOUSING: Housing: House LIVES WITH: Lives With: Family Patient Portal Questionaires Social History Living Situation History Housing: House Housing Other:: Patient resides at home with parents. Tobacco History Smoking Status: Never smoker Second Hand Smoke Exposure: No Alcohol History Alcohol Intake: Never Alcohol Intake Frequency: holidays/special occasions only Substance Use History Substance Use: occasional marijuana use Domestic Abuse History Do You Feel Safe at Home: Yes Review of Systems Report any current symptoms Only answer those that you have currently: Past Medical History Past Medical History Have you ever been diagnosed with any of the following: Neurological Problems Cerebrovascular Accident (CVA): No Transient Ischemic Attacks (TIA): No Dementia: No Alzheimer's Disease: No Parkinson's Disease: No Brain Tumor: No Meningitis: No Seizures: No Epilepsy: No Multiple Sclerosis: No Cerebral Palsy: No Amyotrophic Lateral Sclerosis (ALS/Naa Gehrig's): No Guillain-[place] Syndrome: No Spina Bifida: No Paralysis: No Peripheral Neuropathy: Yes (Mild diabetic neropathy) Figueroa's Palsy: No Subdural Hematoma: No Migraine: No Head Trauma: No Spinal Cord Injury: No Traumatic Brain Injury: No Cardiology Problems Myocardial Infarction: No Cardiac Arrhythmia: No Atrial Fibrillation: No Angina: No Heart Murmur: No Coronary Artery Disease: No Atherosclerotic Heart Disease: No Peripheral Vascular Disease: No Hypercholesterolemia: No Aneurysm: No Congestive Heart Failure: No Congenital Heart Disease: No Valvular Heart Disease: No Rheumatic Fever: No Cardiomyopathy: No Edema: No Pericarditis: No Cellulitis: No Deep Vein Thrombosis: No Hypertension: Yes Hypotension: No Varicose Veins: No Respiratory Problems Chronic Obstructive Pulmonary Disease (COPD): No Asthma: No Bronchitis: No Emphysema: No Pneumonia: No Pulmonary Fibrosis: No Tuberculosis: No Pulmonary Embolism: No Pulmonary Edema: No Sleep Apnea: No Stomache/Intestinal Problems Hepatitis: No Cirrhosis: No Pancreatitis: No Celiac Disease: No Gall Bladder Disease: No Gastrointestinal Bleed: No Esophageal Varices: Yes Barahona's Esophagus: No Colitis: No Ulcerative Colitis: No Diverticulitis: No Diverticulosis: No Ulcer: No Colorectal Cancer: No Irritable Bowel: No Crohn's Disease: No Obstructive Bowel: No Hiatal Hernia: No Hemorrhoids: No Gastroesophageal Reflux Disease: Yes Obesity: No Genital/Urinary Problems Renal Disease: No Kidney Stones: No Polycystic Kidney Disease: No Neurogenic Bladder: No Inguinal Hernia: No Dialysis: No Prostate Cancer: No Benign Prostatic Hyperplasia: No Reproductive Problems Breast Cancer: No Genital Herpes: No Gonorrhea: No Syphilis: No Testicular Cancer: No Musculoskeletal Problems Muscular Dystrophy: No Myasthenia Gravis: No Marfan's Syndrome: No Bone Cancer: No Arthritis: No Rheumatoid Arthritis: No Osteoporosis: No Degenerative Disk Disease: No Gout: No Scoliosis: No Fibromyalgia: No Fractures: No Degenerative Joint Disease: No Osteomyelitis: No Poliovirus: No Head,Eye,Nose,Throat Problems Cataracts: Yes Glaucoma: No Blind: No Retinal Detachment: No Macular Degeneration: No Chronic Ear Infections: No Deafness: No Eye Prosthesis: No Endocrine Problems Diabetes Mellitus Type 1: Yes Diabetes Mellitus Type 2: No Hypoglycemia: No [place]'s Syndrome: No Pedro's Disease: No Hyperthyroidism: No Hypothyroidism: No Parathyroid Disease: No Pituitary Disease: No Systemic Lupus Erythematosus: No Syndrome of Inappropriate Antidiuretic Hormone: No Adrenal Disease: No Graves' Disease: No Blood Problems Anemia: No Leukemia: No Hemophilia: No Thalassemia: No Sickle Cell Disease: No Clotting Problems: No Psychologic Problems Schizophrenia: No Recreational Drug Use: Yes Bipolar Disorder: No Depression: Yes Anxiety: Yes Behavior Problems: No Self-Mutilation: No Attention Deficit Disorder: No Attention Deficit Hyperactivity Disorder: No Depression: No Post Traumatic Stress Disorder: No Eating Disorder: No Other Problems Hospitalization: Yes Down Syndrome: No Autism: No Developmental Delay: No Shingles: No Falls: No Blood Transfusions: No Blood Transfusion Reaction: No Anesthesia Reactions: No Organ Transplant: No Chemotherapy: No Radiation Therapy: No Hyperbaric Therapy: No MRSA: No VRSA: No Vancomycin-Resistant Enterococci: No Human Immunodeficiency Virus (HIV): No Chicken Pox: Yes Measles: No Mumps: No Rubella (Afghan Measles): No Pertussis: No Clostridium Difficile: No Lung Cancer: No Surgical History Pacemaker: No Thyroidectomy: No History of Present Illness HPI Narrative Meek Lyon is a 34-year-old male with past medical history of hypertension, type 1 diabetes mellitus on CGM, gastroparesis, and CKD stage IV who presents to [facility] on 05/29 for lab follow-up. 05/07: Last follow-up was on 09/2023 for the same and states that he had moved out of town but had recently moved back. Insulin regimen of 15 units Basaglar in morning and 1 unit NovoLog every 20 g of carbohydrates (previously 1:10). Continues to utilize From[employer]style myriam 3 CGM and phone summer showed A1c of 7.4% with time in range of 63% over the last 3 months. Otherwise, he states that he would like to follow-up with Dr. Sorensen as she was managing his blood pressure given his CKD and will send referral to establish care. He does state that he has had fungal infection of bilateral feet for a long time. Thus, will send referral to outreach team member and antifungal rx. States that he also follows up with an device repair technician yearly. 05/29: Does not have any new complaints at this time. States that he continues to have gastroparesis and eats one meal on most days, and is already consuming small caliber meals. Has been complaint with his medications, including terbinafine for onychomycosis but does not report much improvement. States that he has not heard from Dr. Sorensen's office or podiatry. Otherwise, labs reviewed and noted discrepancy between A1c on CHEM panel and freestyle myriam 3 summer of 9.3% and 7.6% respectively. Time in range continues to be 65% over the last 3 months. Additionally, potassium noted to be 6.3 and asked patient to obtain repeat labs to confirm hyperkalemia and to call office afterwards to allow for prompt follow-up and management if potassium remains elevated. 07/02: States that he has been doing well since his last visit. As mentioned above, K noted to be 6.3 and repeat was 6.0. Veltassa was ordered but states that he was also able to see Dr. Sorensen approximately two weeks ago who also prescribed Veltassa. Patient states that when he went to pick it up from the pharmacy, it was not in the medications he was given but per pharmacy it was and now insurance will not cover it. Recommended patient to go back to his pharmacy to see if either order was there, and if not then to call the office and let us know so we can re-order it. Otherwise, he was inquiring about seeing an tool straightener and will send a referral to Dr. Dunn. He does not have any complaints at this time. Referral will be sent to endocrinology. Review of Systems Review of Systems Systems Reviewed: All systems reviewed, normal except as documented Objective/Exam Narrative Physical exam: General: AOx3, no acute distress, appears underweight HEENT: NC/AT, mucous membranes moist, bilateral sclera anicteric Cardiovascular: regular rate and rhythm, S1/S2 present, no murmurs appreciated Pulmonary: clear to auscultation bilaterally, no rales/rhonchi/wheezes Abdominal: soft, non-tender, non-distended, no rebound/guarding, normal bowel sounds present Musculoskeletal: onychomycosis seen on all toenails bilaterally, normal ROM, no peripheral edema Skin: warm and dry, intact Neuro: CN II-XII intact, no focal deficits Assessment & Plan Diagnosis / Problem List (1) Type 1 diabetes mellitus: Status: Acute Qualifiers: Chronic kidney disease stage: stage 3 (moderate) Chronic kidney disease stage 3 subtype: stage 3a (GFR 45-59) Diabetes mellitus complication detail: with chronic kidney disease Diabetes mellitus complication status: with kidney complications Qualified Code(s): E10.22 - Type 1 diabetes mellitus with diabetic chronic kidney disease; N18.31 - Chronic kidney disease, stage 3a Assessment & Plan: Mr. Lyon noted to have A1c as high as 15.4% dating back to 2018 and I significantly improved to 7.4% within the last few months on current regimen with freestyle myriam 3. Patient expressing interest in referral to tool straightener, and will send referral to Dr. Dunn. Plan: ? 17 units Basaglar every a.m. ? 1 unit NovoLog for every 20 g of carbohydrates (2) Onychomycosis: Status: Acute Plan: ? Terbinafine 250 mg p.o. daily for total of 12 weeks ? Pending podiatry consult (3) Chronic kidney disease: Status: Chronic Qualifiers: Chronic kidney disease stage: stage 4 (severe) Qualified Code(s): N18.4 - Chronic kidney disease, stage 4 (severe) Plan: ? Following-up with pan devulcanizer helper, Dr. Sorensen (4) Gastroparesis: Status: Acute Plan: ? Continue metoclopramide 10 mg TID PRN ? Continue ondansetron 4 mg q6h PRN (5) Hyperkalemia: Status: Acute Assessment & Plan: K noted to be 6.3 on CMP obtained on 05/26. Instructed patient to obtain another chem panel and to follow-up on K and will manage accordingly depending on results. Plan: ? Follow-up BMP for potassium ? Instructed patient to call office after he obtains labs so we can follow-up and manage accordingly (6) Hypertension: Status: Chronic Qualifiers: Hypertension type: unspecified Qualified Code(s): I10 - Essential (primary) hypertension Plan: ? Continue metoprolol 25 mg p.o. daily ? Continue valsartan 80 mg p.o. daily Orders: Referrals Endocrinology Office Procedures [facility] Level of Care Nursing/Assessment Patient Status: Established Patient Nursing Assessment/Reassessment: Medication Reconciliation, Update PMH in EMR and Vital Signs Coordination of Care: Complex Care and Chronic Disease 1-5, Consent,records obtained, informed consent, Education Simp Pt/Fam, Results/Orders obtained and Staff clarify orders Established Patient Charge Established Patient Point Assignment: 90 Established Patient Point Charge: Level 3 (80-115)
== END 2024-07-02 15:10 | disposition home or self-care (01) ==
LOC: HODAHC 13:46
PROVIDERS: Supervising Provider Internal Medicine
DX: E10.22 Type 1 diabetes mellitus with diabetic chronic kidney disease (principal); I12.9 Hypertensive chronic kidney disease with stage 1 through stage 4 chronic kidney disease, or unspecified chronic kidney disease; N18.4 Chronic kidney disease, stage 4 (severe); Z79.4 Long term (current) use of insulin; B35.1 Tinea unguium; E10.43 Type 1 diabetes mellitus with diabetic autonomic (poly)neuropathy; K31.84 Gastroparesis; E87.5 Hyperkalemia
CPT/HCPCS: 99213; G0463

== ENCOUNTER 2024-07-04 12:57 | Emergency (ER) | payer MEDICAID, SELFPAY ==
[2024-07-04 13:38] VITALS: BP 160/90; PULSE 93; RESP 18; TEMP 37; O2SAT 97; BMI 18.2
--- NOTE | 2024-07-04 13:39 | EKG_ITS ---
[facility] Test Date: 2024-07-04 Pat Name: MONI PEÑALOZA Department: Room: - Gender: Male Net Developer With [employer]: : 1990 Requested By: Erickson Jones Order Number: [id number] Reading MD: Erickson Jones Measurements Intervals [place] Rate: 91 P: 80 GA: 129 QRS: 72 QRSD: 108 T: 43 QT: 394 QTc: 486 Interpretive Statements SINUS RHYTHM INCOMPLETE RIGHT BUNDLE BRANCH BLOCK [90+ ms QRS DURATION, TERMINAL R IN V1/V2, 40+ ms S IN I/aVL/V4/V5/V6] Compared to ECG 08/06/2022 12:06:41 Sinus tachycardia no longer present Short GA interval no longer present /store/S0/[id number].pdf
--- NOTE | 2024-07-04 13:39 | PD.EDRME ---
Rapid Medical Screening Exam E Arrival date/time: 07/04/24 12:57 34-year-old male with a history of hyperlipidemia, type I diabetes, presents to the emergency room with a chief complaint of 6 out of 10 sternal chest pain and epigastric pain x 3 days I have greeted and performed a focused initial assessment of this patient. A comprehensive ED assessment and evaluation of the patient, analysis of all test results, and completion of the medical decision making process will be conducted by additional ED providers. Chief Complaint: Chest Pain Vital signs: Vital Signs Temperature 98.6 F 07/04/24 13:38 Pulse Rate 93 07/04/24 13:38 Respiratory Rate 18 07/04/24 13:38 Blood Pressure 160/90 H 07/04/24 13:38 Pulse Oximetry (%) 97 07/04/24 13:38 Oxygen Delivery Method Room Air 07/04/24 13:38 Vital signs reviewed by provider: Yes
[2024-07-04 14:02] LABS: Basophils # (Auto) 0.1 Thou/mm3 (0.0-0.2); Basophils % (Auto) 1 % (0-2.5); Eosinophils # (Auto) 0.1 Thou/mm3 (0.0-0.5); Eosinophils % (Auto) 0 % (0-10); Hematocrit 30.7 % (41.0-53.0); Hemoglobin 10.9 g/dL (13.5-16.0); Immature Granulocytes % (Auto) 0 % (0-0); Immature Granulocytes Auto 0.05 Thou/mm3 (0.00-0.00); Lymphocytes # (Auto) 3.1 Thou/mm3 (1.0-4.8); Lymphocytes % (Auto) 18 % (10-50); Mean Corpuscular HGB Conc 35.5 g/dl (31.0-37.0); Mean Corpuscular Hemoglobin 30.6 pg (25.0-35.0); Mean Corpuscular Volume 86 fL (80-100); Monocytes # (Auto) 1.7 Thou/mm3 (0.0-0.8); Monocytes % (Auto) 10 % (0-12); Neutrophils # (Auto) 11.9 Thou/mm3 (1.8-7.7); Neutrophils % (Auto) 70 % (37-80); Nucleated Red Blood Cell % 0 /100 WBC (0); Platelet Count 291 Thou/mm3 (140-440); RDW Standard Deviation 40.4 fL (35.1-43.9); Red Blood Count 3.56 Miln/mm3 (4.50-5.90)
[2024-07-04 14:02] LABS: Collection Type, Urine Clean Catch
[2024-07-04 14:17] LABS: Bilirubin,Urine Negative (Negative); Blood,Urine Negative (Negative); Clarity,Urine Clear (Clear/Hazy); Color,Urine Lt-Yellow (Lt Yel-Yel); Glucose, Urine 3+ (Negative); Ketones,Urine Negative (Negative); Leukocyte Esterase,Urine Negative (Negative); Nitrite,Urine Negative (Negative); Protein,Urine 2+ (Neg - Trace); RBC,Urine 4 /hpf (0-3); Specific Gravity,Urine 1.013 (1.001-1.035); Squamous Epithelial Cell,Urine < 1 /hpf (0-5); Urobilinogen,Urine Negative mg/dL (0.0-1.0); WBC,Urine 1 /hpf (0-5)
[2024-07-04 14:24] LABS: B-Type Natriuretic Peptide 299 pg/mL (0-100)
[2024-07-04 14:26] LABS: Alanine Aminotransferase 18 U/L (10-49); Albumin, Serum 4.6 gm/dL (3.5-5.0); Albumin/Globulin Ratio 1.6 (1.2-2.2); Alkaline Phosphatase 71 U/L (46-116); Anion Gap 9 (7-16); Aspartate Amino Transferase 22 U/L (0-34); BUN/Creatinine Ratio 11 Ratio (12-20); Bilirubin,Total 0.3 mg/dL (0.3-1.2); Blood Urea Nitrogen 38 mg/dL (9-23); Calcium 10.5 mg/dL (8.3-10.6); Calcium (Corrected) 10.5 mg/dL (8.5-10.1); Carbon Dioxide 30.1 mMol/L (20.0-31.0); Chloride 105 mMol/L (98-107); Creatinine (Component) 3.4 mg/dL (0.6-1.3); Estimated Creatinine Clearance 23.8 mL/min (>60); Globulin 2.9 gm/dL (2.3-3.5); Glucose 190 mg/dL (74-106); Lipase 32 U/L (12-53); Osmolality,Calculated 300 (275-295); Potassium 3.9 mMol/L (3.4-5.1); Sodium 144 mMol/L (136-145); Total Protein 7.5 gm/dL (5.7-8.2); Troponin I < 0.020 ng/mL (0.0-0.045); eGFR 23 See Note
[2024-07-04 14:37] LABS: Amphetamine/Methamp Scrn,U Negative (Negative); Barbiturate Screen,Urine Negative (Negative); Benzodiazepines Screen,Urine Negative (Negative); Benzoylecgonine Screen, Ur Negative (Negative); Fentanyl Screen,Urine Negative (Negative); Opiate Screen,Urine Negative (Negative); THC Screen,Urine Positive (Negative)
--- NOTE | 2024-07-04 19:51 | PC.NURSE ---
na x 2 @ 194, lab states they have called him x3.
--- NOTE | 2024-07-04 20:07 | PC.NURSE ---
[facility]
--- NOTE | 2024-07-04 20:45 | PC.NURSE ---
[facility]
== END 2024-07-04 22:25 | disposition left against medical advice (07) ==
PROVIDERS: Nurse Practitioner Family; Emergency Provider Family Medicine
DX: R07.2 Precordial pain (principal); E10.9 Type 1 diabetes mellitus without complications; E78.5 Hyperlipidemia, unspecified; R10.13 Epigastric pain; Z53.29 Procedure and treatment not carried out because of patient's decision for other reasons
CPT/HCPCS: 36415; 80053; 80307; 81001; 83690; 83880; 84484; 85025; 87086; 93005; 99281

== ENCOUNTER 2024-07-05 08:37 | Emergency (ER) | payer MEDICAID, SELFPAY ==
--- NOTE | 2024-07-05 08:51 | EKG_ITS ---
[facility] Test Date: 2024-07-05 Pat Name: MONI PEÑALOZA Department: Room: - Gender: Male Strategic Planning Consultant: : 1990 Requested By: Yan Bolaños Order Number: [id number] Reading MD: Yan Bolaños Measurements Intervals [place] Rate: 80 P: 72 DC: 132 QRS: 51 QRSD: 117 T: 56 QT: 400 QTc: 463 Interpretive Statements SINUS RHYTHM INCOMPLETE RIGHT BUNDLE BRANCH BLOCK [90+ ms QRS DURATION, TERMINAL R IN V1/V2, 40+ ms S IN I/aVL/V4/V5/V6] Compared to ECG 07/04/2024 13:43:23 No significant changes /store/S0/[id number]/[id number]
[2024-07-05 08:55] VITALS: BP 181/100; PULSE 89; RESP 16; TEMP 36.9; O2SAT 100
--- NOTE | 2024-07-05 09:09 | EDNOTE_ITS ---
ED General RME/HPI General Chief complaint: Abdominal Pain Stated complaint: ABD PAIN AND NAUSEA Time Seen by Provider: 07/05/24 09:02 Arrival date/time: 07/05/24 08:37 RME / HPI RME / HPI narrative: This is a 34-year-old male with past medical history of CKD stage IV, hypertension, type 1 diabetes on insulin presented to the ED on 07/05/2024 with chief complaint of substernal chest pain and epigastric tenderness/pain x 3 days ago. Patient reported the pain started 3 days ago achy in nature nonradiating not related to the food intake associated with nausea and rated as 10/10. He denied having a vomiting episode or loose stool. His last bowel movement was yesterday and is passing gas. He stated that he follows up with his PCP in our [facility] and was unable to get V[place] for hyperkalemia. He has been using his medications appropriately. He stopped taking losartan given hyperkalemia on the previous labs. Patient is only on metoprolol for his blood pressure management. Denied any fever, chills, burning sensation or any other complaints. Per chart review, labs from 07/04/2024 revealed leukocytosis white count 17, hemoglobin 10.9. Chemistry panel showed potassium 3.9. Kidney functions revealed BUN 38 and creatinine 3.4 baseline 3.2 GFR 23. Corrected calcium 10.5. BNP 299. Urinalysis only showed trace RBCs with proteins and glucosuria. U tox positive for marijuana only. EKG showed sinus rhythm with QTc 486 with incomplete RBBB. PMH: As above PSH: Cataract, retinal detachment SH: Endorses marijuana but denies other drugs, tobacco, alcohol. Lives at home with parents and is currently unemployed. FH: DM, HTN, cancer (unsure), heart disease in grandfather Allergies: NKDA Meds: Insulin 18 units once daily, short-acting insulin, Losartan was stopped, metoprolol 50 mg XL once daily Patient presented with worsening epigastric pain associated with nausea x 3 years ago. Denied any fever or chills or any other complaints. Vitals revealed elevated blood pressure 181/100, pulse 89, respiratory rate 16 and afebrile. He was satting well on room air. EKG showed sinus rhythm with incomplete RBBB. QTc 463. Peaked T waves and deep S waves seen in in lead I,II and lead III. no acute ST-T changes were noticed. Labs revealed leukocytosis 15.5, hemoglobin 11.2. Platelet count 285. Lactic acid 1.9. Urinalysis showed pH 7.5, proteinuria and glucosuria. No signs of UTI. Lipase was negative Differentials include intractable abdominal pain due to hyperkalemia, pancreatitis, peptic ulcer disease/gastritis, UT,? DKA We ordered p.o. [place] 5/325 x 1, Pepcid 40 mg x 1, viscous lidocaine 15 mL p.o. x 1, Zofran p.o. x 1 and pantoprazole x 1. 11:03 Patient left against medical advice. He was called twice but was not seen in the lobby. Patient didnt rec insulin SC or neutrophosp pack given was found to have Hyperglycemia and hypophosphatemia. Acute pancreatitis, UT, hyperkalemia and DKA were ruled out. Most likely patient had peptic ulcer/gastritis/gastroparesis due to type 1 diabetes. MD complaint: Epigastric pain and substernal chest pain Onset (ago): day(s) (3) Location: chest and abdomen Radiation: non-radiation Severity: severe Severity scale (1-10): 10 Quality: aching and constant Consistency: constant Relieving factors: none Exacerbating factors: movement Associated symptoms: chest pain and nausea/vomiting Related Data Previous Rx's ?Medication ?Instructions ?Recorded amlodipine 5 mg tablet 5 mg PO QDAY hypertension #3 0 tabs 01/02/23 atorvastatin 80 mg tablet 80 mg PO QHS hyperlipidemia #30 01/02/23 tabs flash glucose sensor (FreeStyle #1 ea 01/02/23 Myriam 2 Sensor kit) gabapentin 100 mg capsule 100 mg PO TID Peripheral 09/17 Neuropathy 1 month #90 caps metoclopramide HCl 10 mg tablet 10 mg PO TID Gastropar esis #90 tabs 01/02/23 metoclopramide HCl 10 mg tablet 10 mg PO TID PRN N/V # 30 tabs 01/02/23 metoprolol succinate 25 mg 25 mg PO QDAY Hypertension 1 month 01/02/23 tablet,extended release 24 hr #30 tabs miscellaneous medical supply #1 ea 01/02/23 (Blood Pressure Cuff) valsartan 80 mg tablet 80 mg PO QDAY Hypertension # 30 tabs 01/02/23 ondansetron 4 mg disintegrating 4 mg PO Q6H PRN nausea and 06/01/23 tablet vomiting #10 tabs blood sugar diagnostic (OneTouch #100 ea 09/12/23 Ultra Test strips) pen needle, diabetic 31 gauge x #1,200 ea 09/12/23 3/16 (Mini Ultra-Thin II) OneTouch Ultra Test (blood sugar #100 ea 09/18/23 diagnostic) OneTouch Ultra Test (blood sugar #100 ea 10/17/23 diagnostic) blood-glucose sensor (FreeStyle #1 ea 10/17/23 Myriam 3 Sensor device) True Metrix Glucose Meter #1 ea 10/23/23 (blood-glucose meter) blood sugar diagnostic (True #100 ea 10/23/23 Metrix Glucose Test Strip) blood-glucose meter (Accu-Chek #1 ea 11/07/23 Guide Glucose Meter) blood sugar diagnostic (Accu-Chek #100 ea 12/27/23 Guide test strips) insulin aspart U-100 100 unit/mL 1 unit (0.01 mL) subc ca TIDACHS 05/07/24 (3 mL) subcutaneous pen (Novolog Diabetes type 1 #15 m L FlexPen U-100 Insulin aspart) insulin glargine 100 unit/mL (3 15 unit (0.15 mL) subc ca QAM Type 05/07/24 mL) subcutaneous pen (Basaglar 1 diabetes mellitus #15 mL KwikPen U-100 Insulin) terbinafine HCl 250 mg tablet 250 mg PO QDAY 12 weeks #84 tabs 05/07/24 Allergies Allergy/AdvReac Type Severity Reaction Status Date / Time No Known Allergies Allergy Verified 07/05/24 08:39 Review of Systems Review of Systems Systems Reviewed: All systems reviewed, normal except as documented Past Medical History Past Medical History NEUROLOGIC: Positive Neurological Disorders and Peripheral Neuropathy (Mild diabetic neropathy) CARDIAC: Positive Hypertension GASTROINTESTINAL: Positive Gastrointestinal Disorders, Esophageal Varices and Gastroesophageal Reflux Disease GENITOURINARY: Positive Genitourinary Disorders ENT: Positive Cataracts ENDOCRINE: Positive Endocrine Disorders and Diabetes Mellitus Type 1 PSYCHO/SOCIAL: Positive Recreational Drug Use, Depression and Anxiety OTHER HISTORY: Positive Hospitalization and Chicken Pox Family History FAMILY HISTORY: Negative Family Psychiatric Problems, Family Respiratory Disorders, Family Cardiac Disorders, Family Gastrointestinal Problems, Family Cancer, Family Surgery or Family Anesthesia Reaction Surgical History SURGICAL: Positive Eye Surgery Social History SMOKING STATUS: Never smoker SECOND HAND EXPOSURE: No SUBSTANCE USE: does not use ED Exam Narrative Physical exam: GENERAL APPEARANCE: AO x 3, lean male in mild distress due to abdominal pain. HEENT: NC, AT. Dry mucous membrane. EOMI, clear conjunctiva, oropharynx clear. NECK: Supple without lymphadenopathy. No stiffness or restricted ROM. HEART: Sinus tachycardia with regular rhythm, normal S1/S2, no m/r/g, hypertensive LUNGS: CTAB, moving air well. No crackles or wheezes are heard. ABDOMEN: Soft, epigastric tenderness, nondistended with good bowel sounds heard. BACK: No CVAT, no obvious deformity. EXTREMITIES: Without cyanosis, clubbing or edema. NEUROLOGICAL: Grossly nonfocal. Alert and oriented, moving all 4 extremities. CN not formally tested but appear grossly intact. Observed to ambulate with normal gait. Skin: Warm and dry without any rash. Psych: Anxious due to abdominal pain Course Course Course Narrative: 9:19 Patient presented with worsening epigastric pain associated with nausea x 3 years ago. Denied any fever or chills or any other complaints. Vitals revealed elevated blood pressure 181/100, pulse 89, respiratory rate 16 and afebrile. He was satting well on room air.EKG showed sinus rhythm with incomplete RBBB. QTc 463. Peaked T waves and deep S waves seen in in lead I,II and lead III. no acute ST-T changes were noticed.Labs revealed leukocytosis 15.5, hemoglobin 11.2. Platelet count 285. Lactic acid 1.9. Urinalysis showed pH 7.5, proteinuria and glucosuria. No signs of UTI. Differentials include intractable abdominal pain due to hyperkalemia, pancreatitis, peptic ulcer disease/gastritis, UT,? DKA We ordered p.o. [place] 5/325 x 1, Pepcid 40 mg x 1, viscous lidocaine 15 mL p.o. x 1, Zofran p.o. x 1 and pantoprazole x 1. 10:31 Chemistry panel showed sodium 140, potassium 4.2, CL 104. Bicarb 28.1. Kidney functions consistent with CKD stage IV BUN 34 creatinine 3.5 EGFR 23. Blood glucose 309. Lactic acid 1.9. Phosphorus 1.8. Troponin I was negative. Procalcitonin was 0.11. Lactic acid 1.9. We ordered 1 L bolus of LR and insulin 5 units SC x1. Neutrophos pack was ordered for hypophosphatemia.Lipase was negative 11:03 Patient left against medical advice. He was called twice but was not seen in the lobby. Patient didnt rec insulin SC or neutrophosp pack given was found to have Hyperglycemia and hypophosphatemia. Acute pancreatitis, UT, hyperkalemia and DKA were ruled out. Most likely patient had peptic ulcer/gastritis/gastroparesis due to type 1 diabetes. Quality Measures none Orders Category Date Time Status Bedside Blood Glucose NOW Care 07/05/24 10:58 Active EKG (ED ONLY) *Do not use* NOW Care 07/05/24 08:52 Completed Fingerstick [Bedside Blood Glucose] NOW Care 07/05/24 08:55 Active EKG (ED Only) Stat Exams 07/05/24 08:51 Draft CBC Stat Lab 07/05/24 09:05 Completed CMP [Comprehensive Metabolic Panel] Stat Lab 07/05/24 09:05 Completed Lactate (Lactic Acid) Stat Lab 07/05/24 09:05 Completed Lipase Stat Lab 07/05/24 09:05 Completed Mag [Magnesium] Stat Lab 07/05/24 09:05 Completed Phosphorous Stat Lab 07/05/24 09:05 Completed Procalcitonin Stat Lab 07/05/24 09:05 Completed Troponin I Stat Lab 07/05/24 09:05 Completed Urinalysis Stat Lab 07/05/24 09:26 Completed Famotidine [Pepcid] Med 07/05/24 09:01 Discontinued 40 mg PO X1 ONE HYDROcodone*/APAP 5/325 [[place] 5/325] Med 07/05/24 09:01 Discontinued 1 tab PO X1 ONE HYDROmorphone INJ [Dilaudid Inj] Med 07/05/24 08:53 Discontinued 1 mg IVP X1 ONE INSULIN LISPRO (AdmeLOG) [HumaLOG] Med 07/05/24 10:29 Discontinued 5 unit SC X1 ONE Lidocaine 2% Viscous [Xylocaine 2% Viscous] Med 07/05/24 09:01 Discontinued 15 ml PO X1 ONE [facility] [Neutra-Phos Pkt] Med 07/05/24 10:32 Discontinued 2 packet PO X1 ONE Ondansetron Inj [Zofran Inj] Med 07/05/24 08:51 Discontinued 4 mg IV X1 ONE Ondansetron Odt [Zofran Odt] Med 07/05/24 09:02 Discontinued 4 mg PO X1 ONE Pantoprazole Inj [Protonix Inj] Med 07/05/24 08:51 Discontinued 40 mg IV X1 ONE Pantoprazole [Protonix] Med 07/05/24 09:02 Discontinued 40 mg PO X1 ONE Ringers Lactated 1000 ml [Lactated Ringers] 1,000 ml Med 07/05/24 10:30 Active IV 999 mls/hr Vital Signs Vital signs: Vital Signs Temperature 98.5 F 07/05/24 08:55 Pulse Rate 89 07/05/24 08:55 Respiratory Rate 16 07/05/24 08:55 Blood Pressure 181/100 H 07/05/24 08:55 Pulse Oximetry (%) 100 07/05/24 08:55 Oxygen Delivery Method Room Air 07/05/24 08:55 Discharge Plan Plan Patient Disposition: Left Against Medical Advice Prescriptions/Referrals Prescriptions/Med Rec: No Action (DME) Accu-Chek Guide test strips Strip See Rx Instructions .Route Qty: 100 5RF Rx Instructions: Test TID and PRN amlodipine 5 mg tablet 5 mg PO QDAY Qty: 30 3RF atorvastatin 80 mg tablet 80 mg PO QHS Qty: 30 3RF (DME) FreeStyle Myriam 2 Sensor Kit See Rx Instructions .Route Qty: 1 6RF Rx Instructions: As directed gabapentin 100 mg capsule 100 mg PO TID 30 Days Qty: 90 2RF metoclopramide HCl 10 mg tablet 10 mg PO TID MDD 30 mg Qty: 90 2RF Rx Instructions: administer 30 minutes before meals metoclopramide HCl 10 mg tablet 10 mg PO TID PRN (Reason: N/V) Qty: 30 0RF metoprolol succinate 25 mg tablet extended release 24 hr 25 mg PO QDAY MDD 25 mg 30 Days Qty: 30 2RF valsartan 80 mg tablet 80 mg PO QDAY MDD 80 mg Qty: 30 5RF (DME) Blood Pressure Cuff Misc See Rx Instructions .Route Qty: 1 0RF Rx Instructions: As directed (DME) pen needle, diabetic [Mini Ultra-Thin II] 31 gauge x 3/16 needle See Rx Instructions .Route Qty: 1200 0RF Rx Instructions: As directed (DME) OneTouch Ultra Test Strip See Rx Instructions .Route Qty: 100 3RF Rx Instructions: As directed (DME) OneTouch Ultra Test Strip See Rx Instructions .Route Qty: 100 3RF Rx Instructions: As directed (DME) OneTouch Ultra Test Strip See Rx Instructions .Route Qty: 100 3RF Rx Instructions: As directed (DME) FreeStyle Myriam 3 Sensor Device See Rx Instructions .Route Qty: 1 3RF Rx Instructions: As directed insulin glargine [Basaglar KwikPen U-100 Insulin] 100 unit/mL (3 mL) insulin pen 15 unit SUBCUT QAM Qty: 15 5RF insulin aspart U-100 [Novolog FlexPen U-100 Insulin] 100 unit/mL (3 mL) insulin pen 1 unit SUBCUT TIDACHS Qty: 15 0RF Rx Instructions: PER SCALE OF PT ONE UNIT PER 20 G CARBS terbinafine HCl 250 mg tablet 250 mg PO QDAY 84 Days Qty: 84 0RF (DME) True Metrix Glucose Test Strip Strip See Rx Instructions .Route Qty: 100 5RF Rx Instructions: Test TID and PRN as directed (DME) blood-glucose meter [True Metrix Glucose Meter] Misc See Rx Instructions .Route Qty: 1 0RF Rx Instructions: Test TID and PRN as directed (DME) blood-glucose meter [Accu-Chek Guide Glucose Meter] Misc See Rx Instructions .Route Qty: 1 0RF Rx Instructions: Test TID and PRN ondansetron 4 mg tablet,disintegrating 4 mg PO Q6H PRN (Reason: nausea and vomiting) Qty: 10 0RF Problem List Clinical Impression: Intractable abdominal pain Patient/Caregiver Discharge Instructions Other Activity Instructions:: Acute pancreatitis, UT, hyperkalemia and DKA were ruled out. Most likely patient had peptic ulcer/gastritis/gastroparesis due to type 1 diabetes. Patients' name was called twice in the lobby. In case of emergency or worsening signs/symptoms patient can always come back to ED or call 911 Print Language: Swedish MDM Narrative MDM hospital course (for use when minimal MDM required): 9: 19 a.m. Patient presented with worsening epigastric pain associated with nausea x 3 years ago. Denied any fever or chills or any other complaints. Vitals revealed elevated blood pressure 181/100, pulse 89, respiratory rate 16 and afebrile. He was satting well on room air.EKG showed sinus rhythm with incomplete RBBB. QTc 463. Peaked T waves and deep S waves seen in in lead I,II and lead III. no acute ST-T changes were noticed. Labs revealed leukocytosis 15.5, hemoglobin 11.2. Platelet count 285. Lactic acid 1.9. Urinalysis showed pH 7.5, proteinuria and glucosuria. No signs of UTI. Differentials include intractable abdominal pain due to hyperkalemia, pancreatitis, peptic ulcer disease/gastritis, UT,? DKA We ordered p.o. [place] 5/325 x 1, Pepcid 40 mg x 1, viscous lidocaine 15 mL p.o. x 1, Zofran p.o. x 1 and pantoprazole x 1. 10:31 Chemistry panel showed sodium 140, potassium 4.2, CL 104. Bicarb 28.1. Kidney functions consistent with CKD stage IV BUN 34 creatinine 3.5 EGFR 23. Blood glucose 309. Lactic acid 1.9. Phosphorus 1.8. Troponin I was negative. Procalcitonin was 0.11. Lactic acid 1.9. We ordered 1 L bolus of LR and insulin 5 units SC x1. Neutrophos pack was ordered for hypophosphatemia.Lipase was negative 11:03 Patient left against medical advice. He was called twice but was not seen in the lobby. Patient didnt rec insulin SC or neutrophosp pack given was found to have Hyperglycemia and hypophosphatemia. Acute pancreatitis, UT, hyperkalemia and DKA were ruled out. Most likely patient had peptic ulcer/gastritis/gastroparesis due to type 1 diabetes. EKG Interpretation EKG #1: EKG Interpretation: EKG showed sinus rhythm with incomplete RBBB. QTc 463. Peaked T waves and deep S waves seen in in lead I,II and lead III. no acute ST-T changes were noticed. Medication Administration(s) Medication Administration History Lactated Ringer's (Lactated Ringers) 1,000 mls @ 999 mls/hr IV .Q1H1M ONE Stop: 07/05/24 11:30 Discontinued Medications Hydrocodone Bitart/Acetaminophen (Hydrocodone/Apap 5/325 Tablet) 1 tab PO X1 ONE Stop: 07/05/24 09:02 Last Admin: 05/10/25 09:43 Dose: 1 tab Documented By: TM Famotidine (Famotidine 20 Mg Tablet) 40 mg PO X1 ONE Stop: 07/05/24 09:02 Last Admin: 07/05/24 09:43 Dose: 40 mg Documented By: TM Hydromorphone HCl (Hydromorphone Inj 2 Mg/Ml Vial) 1 mg IVP X1 ONE Stop: 07/05/24 08:54 Last Admin: 07/05/24 10:13 Dose: Not Given Documented By: LF Non-Admin Reason: Discontinued Insulin Human Lispro (Insulin Lispro (Admelog) 1 Unit/0.01 Ml Unit) 5 unit SC X1 ONE Stop: 07/05/24 10:30 Lidocaine HCl (Lidocaine Viscous 2% 15 Ml Udc) 15 ml PO X1 ONE Stop: 07/05/24 09:02 Last Admin: 07/05/24 09:44 Dose: 15 ml Documented By: TM Ondansetron HCl (Ondansetron Inj 2 Mg/Ml Inj 2 Ml) 4 mg IV X1 ONE; Protocol Stop: 07/05/24 08:52 Last Admin: 07/05/24 10:12 Dose: Not Given Documented By: MICHELLE Non-Admin Reason: Discontinued Ondansetron HCl (Ondansetron Odt 4 Mg Tabrap) 4 mg PO X1 ONE; Protocol Stop: 07/05/24 09:03 Last Admin: 07/05/24 09:43 Dose: 4 mg Documented By: SENTHIL Pantoprazole Sodium (Pantoprazole Inj 40 Mg Vial) 40 mg IV X1 ONE Stop: 07/05/24 08:52 Last Admin: 07/05/24 10:13 Dose: Not Given Documented By: LF Non-Admin Reason: Discontinued Pantoprazole Sodium (Pantoprazole 40 Mg Tablet) 40 mg PO X1 ONE Stop: 07/05/24 09:03 Last Admin: 07/05/24 09:43 Dose: 40 mg Documented By: TM Potassium Phos/Sodium Phos ([facility] 1 Packet (1.5 Gm)) 2 packet PO X1 ONE Stop: 07/05/24 10:33
[2024-07-05 09:17] LABS: Lactate (Lactic Acid) 1.9 mMol/L (0.4-2.0)
[2024-07-05 09:29] LABS: Basophils # (Auto) 0.2 Thou/mm3 (0.0-0.2); Basophils % (Auto) 1 % (0-2.5); Eosinophils # (Auto) 0.7 Thou/mm3 (0.0-0.5); Eosinophils % (Auto) 5 % (0-10); Hematocrit 32.7 % (41.0-53.0); Hemoglobin 11.2 g/dL (13.5-16.0); Immature Granulocytes % (Auto) 0 % (0-0); Immature Granulocytes Auto 0.05 Thou/mm3 (0.00-0.00); Lymphocytes # (Auto) 3.6 Thou/mm3 (1.0-4.8); Lymphocytes % (Auto) 23 % (10-50); Mean Corpuscular HGB Conc 34.3 g/dl (31.0-37.0); Mean Corpuscular Hemoglobin 30.8 pg (25.0-35.0); Mean Corpuscular Volume 90 fL (80-100); Monocytes # (Auto) 1.5 Thou/mm3 (0.0-0.8); Monocytes % (Auto) 10 % (0-12); Neutrophils # (Auto) 9.4 Thou/mm3 (1.8-7.7); Neutrophils % (Auto) 61 % (37-80); Nucleated Red Blood Cell % 0 /100 WBC (0); Platelet Count 285 Thou/mm3 (140-440); RDW Standard Deviation 43.6 fL (35.1-43.9); Red Blood Count 3.64 Miln/mm3 (4.50-5.90); White Blood Count 15.4 Thou/mm3 (3.8-10.6)
[2024-07-05 09:41] LABS: Collection Type, Urine Clean Catch
[2024-07-05] MEDS: PANTOPRAZOLE 40 MG TABLET PO (09:43)
[2024-07-05] MEDS: ONDANSETRON ODT 4 MG TABRAP PO (09:43)
[2024-07-05] MEDS: HYDROcodone/APAP 5/325 TABLET 1 TAB PO (09:43)
[2024-07-05] MEDS: FAMOTIDINE 20 MG TABLET 40 MG PO (09:43)
[2024-07-05] MEDS: LIDOCAINE VISCOUS 2% 15 ML UDC PO (09:44)
[2024-07-05 09:52] LABS: Alanine Aminotransferase 17 U/L (10-49); Albumin, Serum 4.4 gm/dL (3.5-5.0); Albumin/Globulin Ratio 1.5 (1.2-2.2); Alkaline Phosphatase 69 U/L (46-116); Anion Gap 8 (7-16); Aspartate Amino Transferase 21 U/L (0-34); BUN/Creatinine Ratio 10 Ratio (12-20); Bilirubin,Total 0.4 mg/dL (0.3-1.2); Blood Urea Nitrogen 34 mg/dL (9-23); Calcium 9.9 mg/dL (8.3-10.6); Calcium (Corrected) 9.9 mg/dL (8.5-10.1); Carbon Dioxide 28.1 mMol/L (20.0-31.0); Chloride 104 mMol/L (98-107); Creatinine (Component) 3.5 mg/dL (0.6-1.3); Globulin 2.9 gm/dL (2.3-3.5); Glucose 309 mg/dL (74-106); Lipase 28 U/L (12-53); Magnesium 2.3 mg/dL (1.6-2.6); Osmolality,Calculated 299 (275-295); Phosphorous 1.8 mg/dL (2.4-5.1); Potassium 4.2 mMol/L (3.4-5.1); Procalcitonin 0.11 ng/ml (0.0-0.49); Sodium 140 mMol/L (136-145); Total Protein 7.3 gm/dL (5.7-8.2); Troponin I < 0.020 ng/mL (0.0-0.045); eGFR 23 See Note
[2024-07-05 09:56] LABS: Bilirubin,Urine Negative (Negative); Blood,Urine Negative (Negative); Clarity,Urine Clear (Clear/Hazy); Color,Urine Lt-Yellow (Lt Yel-Yel); Glucose, Urine 3+ (Negative); Hyaline Casts,Urine < 1 /hpf (0-1); Ketones,Urine Negative (Negative); Leukocyte Esterase,Urine Negative (Negative); Nitrite,Urine Negative (Negative); PH,Urine 7.5 (5.0-7.0); Protein,Urine 2+ (Neg - Trace); RBC,Urine 2 /hpf (0-3); Specific Gravity,Urine 1.013 (1.001-1.035); Squamous Epithelial Cell,Urine < 1 /hpf (0-5); Urobilinogen,Urine Negative mg/dL (0.0-1.0); WBC,Urine 1 /hpf (0-5)
--- NOTE | 2024-07-05 11:21 | PC.NURSE ---
PT LEFT AMA FROM LOBBY.
== END 2024-07-05 10:22 | disposition left against medical advice (07) ==
PROVIDERS: Student in an Organized Health Care Education/Training Program; Emergency Provider Family Medicine; PCP Internal Medicine
DX: R10.13 Epigastric pain (principal); D72.829 Elevated white blood cell count, unspecified; I45.10 Unspecified right bundle-branch block; Z53.29 Procedure and treatment not carried out because of patient's decision for other reasons
CPT/HCPCS: 36415; 80053; 81001; 83605; 83690; 83735; 84100; 84145; 84484; 85025; 93005; 99283; J3490; Q0162; A9270

== ENCOUNTER 2024-07-07 11:20 | Emergency (ER) | payer MEDICAID, SELFPAY ==
[2024-07-07 11:50] VITALS: BP 167/103; PULSE 96; RESP 18; TEMP 36.7; O2SAT 98; BMI 19.5
--- NOTE | 2024-07-07 12:00 | PD.EDRME ---
Rapid Medical Screening Exam E Arrival date/time: 07/07/24 11:20 34-year-old male with a history of type 1 diabetes, chronic kidney disease, hypertension, hyperlipidemia presents to the emergency room with a chief complaint of 8 out of 10 epigastric diffuse abdominal pain. Nausea vomiting. I have greeted and performed a focused initial assessment of this patient. A comprehensive ED assessment and evaluation of the patient, analysis of all test results, and completion of the medical decision making process will be conducted by additional ED providers. Chief Complaint: Abdominal Pain Vital signs: Vital Signs Temperature 98.1 F 07/07/24 11:50 Pulse Rate 96 07/07/24 11:50 Respiratory Rate 18 07/07/24 11:50 Blood Pressure 167/103 H 07/07/24 11:50 Pulse Oximetry (%) 98 07/07/24 11:50 Vital signs reviewed by provider: Yes
[2024-07-07] MEDS: HYDROcodone/APAP 5/325 TABLET 1 TAB PO (12:06)
[2024-07-07] MEDS: ONDANSETRON ODT 4 MG TABRAP PO (12:07)
[2024-07-07 12:36] LABS: Beta Hydroxybutyrate 0.1 mmol/L (<0.6)
[2024-07-07 12:40] LABS: Basophils # (Auto) 0.1 Thou/mm3 (0.0-0.2); Basophils % (Auto) 1 % (0-2.5); Eosinophils # (Auto) 0.3 Thou/mm3 (0.0-0.5); Eosinophils % (Auto) 2 % (0-10); Hemoglobin 10.1 g/dL (13.5-16.0); Immature Granulocytes % (Auto) 0 % (0-0); Immature Granulocytes Auto 0.04 Thou/mm3 (0.00-0.00); Lymphocytes # (Auto) 1.9 Thou/mm3 (1.0-4.8); Lymphocytes % (Auto) 14 % (10-50); Mean Corpuscular HGB Conc 34.8 g/dl (31.0-37.0); Mean Corpuscular Hemoglobin 30.5 pg (25.0-35.0); Mean Corpuscular Volume 88 fL (80-100); Monocytes # (Auto) 0.7 Thou/mm3 (0.0-0.8); Monocytes % (Auto) 6 % (0-12); Neutrophils # (Auto) 10.4 Thou/mm3 (1.8-7.7); Neutrophils % (Auto) 77 % (37-80); Nucleated Red Blood Cell % 0 /100 WBC (0); Platelet Count 252 Thou/mm3 (140-440); RDW Standard Deviation 42.3 fL (35.1-43.9); Red Blood Count 3.31 Miln/mm3 (4.50-5.90); White Blood Count 13.4 Thou/mm3 (3.8-10.6)
[2024-07-07 12:58] LABS: Alanine Aminotransferase 16 U/L (10-49); Albumin, Serum 4.2 gm/dL (3.5-5.0); Albumin/Globulin Ratio 1.6 (1.2-2.2); Alkaline Phosphatase 71 U/L (46-116); Anion Gap 8 (7-16); Aspartate Amino Transferase 25 U/L (0-34); BUN/Creatinine Ratio 11 Ratio (12-20); Bilirubin,Total 0.3 mg/dL (0.3-1.2); Blood Urea Nitrogen 35 mg/dL (9-23); Calcium 9.8 mg/dL (8.3-10.6); Calcium (Corrected) 9.8 mg/dL (8.5-10.1); Carbon Dioxide 29.7 mMol/L (20.0-31.0); Chloride 106 mMol/L (98-107); Creatinine (Component) 3.3 mg/dL (0.6-1.3); Estimated Creatinine Clearance 25.5 mL/min (>60); Globulin 2.7 gm/dL (2.3-3.5); Glucose 289 mg/dL (74-106); Lipase 32 U/L (12-53); Osmolality,Calculated 305 (275-295); Potassium 4.7 mMol/L (3.4-5.1); Sodium 144 mMol/L (136-145); Total Protein 6.9 gm/dL (5.7-8.2); eGFR 24 See Note
[2024-07-07 13:15] LABS: Collection Type, Urine Clean Catch; Squamous Epithelial Cell,Urine 0 /hpf (0-5)
[2024-07-07 13:47] LABS: Bilirubin,Urine Negative (Negative); Blood,Urine Negative (Negative); Clarity,Urine Clear (Clear/Hazy); Color,Urine Colorless (Lt Yel-Yel); Glucose, Urine 3+ (Negative); Ketones,Urine Negative (Negative); Leukocyte Esterase,Urine Negative (Negative); Nitrite,Urine Negative (Negative); Protein,Urine 2+ (Neg - Trace); RBC,Urine 3 /hpf (0-3); Urobilinogen,Urine Negative mg/dL (0.0-1.0); WBC,Urine < 1 /hpf (0-5)
--- NOTE | 2024-07-07 17:00 | PD.EDRME ---
Rapid Medical Screening Exam RME Arrival date/time: 07/07/24 11:20 07/07/24 11:20 34-year-old male with a history of type 1 diabetes, chronic kidney disease, hypertension, hyperlipidemia presents to the emergency room with a chief complaint of 8 out of 10 epigastric diffuse abdominal pain. Nausea vomiting. I have greeted and performed a focused initial assessment of this patient. A comprehensive ED assessment and evaluation of the patient, analysis of all test results, and completion of the medical decision making process will be conducted by additional ED providers. Chief Complaint: Abdominal Pain Time Seen by Provider: 07/07/24 17:00 Vital signs: Vital Signs Temperature 98.1 F 07/07/24 11:50 Pulse Rate 96 07/07/24 11:50 Respiratory Rate 18 07/07/24 11:50 Blood Pressure 167/103 H 07/07/24 11:50 Pulse Oximetry (%) 98 07/07/24 11:50 RME Narrative: 07/07/24 11:20 34-year-old male with a history of type 1 diabetes, chronic kidney disease, hypertension, hyperlipidemia presents to the emergency room with a chief complaint of 8 out of 10 epigastric diffuse abdominal pain. Nausea vomiting. I have greeted and performed a focused initial assessment of this patient. A comprehensive ED assessment and evaluation of the patient, analysis of all test results, and completion of the medical decision making process will be conducted by additional ED providers.
--- NOTE | 2024-07-07 17:15 | PC.NURSE ---
NO ANSWER IN LOBBY AT THIS TIME
--- NOTE | 2024-07-07 17:30 | PC.NURSE ---
NO ANSWER X2
--- NOTE | 2024-07-07 18:04 | PC.NURSE ---
CALLED FROM LOBBY AND NO ANSWER. PT NOT FOUND INSIDE THE E.D. OR OUT SIDE
== END 2024-07-07 18:05 | disposition left against medical advice (07) ==
PROVIDERS: Nurse Practitioner Family; Emergency Provider Family Medicine
DX: R10.84 Generalized abdominal pain (principal); R11.2 Nausea with vomiting, unspecified; Z53.29 Procedure and treatment not carried out because of patient's decision for other reasons
CPT/HCPCS: 36415; 80053; 81001; 82010; 83690; 85025; 87086; 99283; Q0162; A9270

== ENCOUNTER 2025-02-04 14:00 | Outpatient (AMB) | payer MEDICAID, SELFPAY ==
--- NOTE | 2025-02-04 14:20 | ACNOTE_ITS ---
Vital Signs 02/04/25 14:24 02/04/25 14:47 Height 1.7 m Height Method Stated Weight 57.776 kg Weight Measurement Method Standing Scale BMI 20.0 BP 164/96 H 135/89 H Blood Pressure Source Automatic Cuff Automatic Cuff Blood Pressure Location Right Upper Arm Right Upper Arm Position Sitting Sitting Respiration 18 Pulse 84 Pulse Source Monitor Temp 97.6 F Temp Source Temporal Artery Scan Pulse Oximetry (%) 98 Oxygen Delivery Method Room Air Allergies/Meds Allergies & Medications Allergies No Known Allergies Allergy (Verified 02/04/25 14:25) Medication Reconciliation atorvastatin 80 mg tablet 80 mg PO QHS hyperlipidemia #30 tabs 01/02/23 [Rx Confirmed 02/04/25] flash glucose sensor (FreeStyle Myriam 2 Sensor kit) #1 ea 01/02/23 [Rx Confirmed 07/03/24] gabapentin 100 mg capsule 100 mg PO TID Peripheral Neuropathy 1 month #90 caps 01/02/23 [Rx Confirmed 02/04/25] metoclopramide HCl 10 mg tablet 10 mg PO TID Gastroparesis #90 tabs 01/02/23 [Rx Confirmed 02/04/25] metoclopramide HCl 10 mg tablet 10 mg PO TID PRN N/V #30 tabs 01/02/23 [Rx Confirmed 02/04/25] miscellaneous medical supply (Blood Pressure Cuff) #1 ea 01/02/23 [Rx Confirmed 07/03/24] valsartan 80 mg tablet 80 mg PO QDAY Hypertension #30 tabs 01/02/23 [Rx Confirmed 02/04/25] ondansetron 4 mg disintegrating tablet 4 mg PO Q6H PRN nausea and vomiting #10 tabs 06/01/23 [Rx Confirmed 02/04/25] blood sugar diagnostic (OneTouch Ultra Test strips) #100 ea 09/12/23 [Rx Confirmed 07/03/24] pen needle, diabetic 31 gauge x 3/16 (Mini Ultra-Thin II) #1,200 ea 09/12/23 [Rx Confirmed 07/03/24] OneTouch Ultra Test (blood sugar diagnostic) #100 ea 09/18/23 [Rx Confirmed 07/03/24] OneTouch Ultra Test (blood sugar diagnostic) #100 ea 10/17/23 [Rx Confirmed 07/03/24] blood-glucose sensor (FreeStyle Myriam 3 Sensor device) #1 ea 10/17/23 [Rx Confirmed 07/03/24] True Metrix Glucose Meter (blood-glucose meter) #1 ea 10/23/23 [Rx Confirmed 07/03/24] blood sugar diagnostic (True Metrix Glucose Test Strip) #100 ea 10/23/23 [Rx Confirmed 07/03/24] blood-glucose meter (Accu-Chek Guide Glucose Meter) #1 ea 11/07/23 [Rx Confirmed 07/03/24] blood sugar diagnostic (Accu-Chek Guide test strips) #100 ea 12/27/23 [Rx Confirmed 07/03/24] metoprolol succinate 25 mg tablet,extended release 24 hr 25 mg PO QDAY Hypertension 1 month #30 tabs 07/30/24 [Rx Confirmed 02/04/25] amlodipine 5 mg tablet 5 mg PO QDAY #30 tabs 02/04/25 [Rx] insulin aspart U-100 100 unit/mL (3 mL) subcutaneous pen (Novolog FlexPen U-100 Insulin aspart) 1 unit (0.01 mL) subcut TIDACHS Diabetes type 1 #15 mL 02/04/25 [Rx] insulin glargine 100 unit/mL (3 mL) subcutaneous pen (Basaglar KwikPen U-100 Insulin) 18 unit (0.18 mL) subcut QAM Type 1 diabetes mellitus #15 mL 02/04/25 [Rx] MA Intake Visit Data Collection New Patient or Established: Established Patient (seen at [facility] within 3 years) Reason for Visit:: RX REFILLS Pain Present Currently: No PCP or OBGYN visit in last 3 months: No Do You Feel Safe at Home: Yes Authorities Contacted: N/A Smoking Status Smoking Status: Former smoker Immunization / Flu Flu Vaccine in the Last 12 Months: No Flu Vaccine Exclusion Criteria: Refused by Patient Past Medical History Past Medical History NEUROLOGIC: Positive Neurological Disorders and Peripheral Neuropathy (Mild diabetic neropathy); Negative Cerebrovascular Accident, Transient Ischemic Attacks (TIA), Dementia, Alzheimer's Disease, Parkinson's Disease, Brain Tumor, Meningitis, Seizures, Epilepsy, Multiple Sclerosis, Cerebral Palsy, Amyotrophic Lateral Sclerosis (ALS/Ana Gehrig's), Guillain-[place] Syndrome, Spina Bifida, Paralysis, Figueroa's Palsy, Subdural Hematoma, Migraine, Head Trauma, Spinal Cord Injury or Traumatic Brain Injury CARDIAC: Positive Hypertension; Negative Cardiac Disorders, Myocardial Infarction, Cardiac Arrhythmia, Atrial Fibrillation, Angina, Heart Murmur, Coronary Artery Disease, Atherosclerotic Heart Disease, Peripheral Vascular Disease, Hypercholesterolemia, Aneurysm, Congestive Heart Failure, Congenital Heart Disease, Valvular Heart Disease, Rheumatic Fever, Cardiomyopathy, Edema, Pericarditis, Cellulitis, Deep Vein Thrombosis, Hypotension or Varicose Veins RESPIRATORY: Negative Chronic Obstructive Pulmonary Disease (COPD), Asthma, Bronchitis, Emphysema, Pneumonia, Pulmonary Fibrosis, Cystic Fibrosis, Tuberculosis, Pulmonary Embolism, Pulmonary Edema or Sleep Apnea GASTROINTESTINAL: Positive Gastrointestinal Disorders, Esophageal Varices and Gastroesophageal Reflux Disease; Negative Hepatitis, Cirrhosis, Pancreatitis, Celiac Disease, Gall Bladder Disease, Gastrointestinal Bleed, Barahona's Esophagus, Colitis, Ulcerative Colitis, Diverticulitis, Diverticulosis, Ulcer, Colorectal Cancer, Irritable Bowel, Crohn's Disease, Obstructive Bowel, Hiatal Hernia, Hemorrhoids or Obesity GENITOURINARY: Positive Genitourinary Disorders; Negative Renal Disease, Kidney Stones, Polycystic Kidney Disease, Neurogenic Bladder, Inguinal Hernia, Dialysis, Prostate Cancer or Benign Prostatic Hy perplasia REPRODUCTIVE: Negative Breast Cancer, Genital Herpes, Gonorrhea, Syphilis or Testicular Cancer MUSCULOSKELETAL: Negative Muscular Dystrophy, Myasthenia Gravis, Marfan's Syndrome, Bone Cancer, Arthritis, Rheumatoid Arthritis, Osteoporosis, Degenerative Disk Disease, Gout, Scoliosis, Fibromyalgia, Fractures, Degenerative Joint Disease, Osteomyelitis or Poliovirus ENT: Positive Cataracts; Negative Glaucoma, Blind, Retinal Detachment, Macular Degeneration, Ear Infection, Deafness, Head Trauma or Eye Prosthesis ENDOCRINE: Positive Endocrine Disorders and Diabetes Mellitus Type 1; Negative Diabetes Mellitus Type 2, Hypoglycemia, [place]'s Syndrome, Pedro's Disease, Hyperthyroidism, Hypothyroidism, Parathyroid Disease, Pituitary Disease, Systemic Lupus Erythematosus, Syndrome of Inappropriate Antidiuretic Hormone (SIADH), Adrenal Disease or Graves' Disease HEMATOLOGIC: Negative Blood Disorders, Anemia, Leukemia, Hemophilia, Thalassemia, Sickle Cell Disease or Clotting Problems PSYCHO/SOCIAL: Positive Recreational Drug Use, Depression and Anxiety; Negative Psychiatric Problems, Schizophrenia, Bipolar Disorder, Behavior Problems, Self-Mutilation, Attention Deficit Disorder, Attention Deficit Hyperactivity Disorder, Depression, Post Traumatic Stress Disorder or Eating Disorder OTHER HISTORY: Positive Hospitalization and Chicken Pox; Negative Down Syndrome, Autism, Developmental Delay, Shingles, Falls, Blood Transfusions, Blood Transfusion Reaction, Anesthesia Reactions, Organ Transplant, Chemotherapy, Radiation Therapy, Hyperbaric Therapy, MRSA, VRSA, Vancomycin-Resistant Enterococci, Human Immunodeficiency Virus (HIV), Measles, Mumps, Rubella (Faroese Measles), Pertussis, Clostridium Difficile, Breast Cancer, Colorectal Cancer, Lung Cancer, Prostate Cancer or Testicular Cancer Family History FAMILY HISTORY: Negative Family Psychiatric Problems, Family Respiratory Disorders, Family Cardiac Disorders, Family Gastrointestinal Problems, Family Cancer, Family Surgery or Family Anesthesia Reaction Surgical History SURGICAL: Positive Eye Surgery; Negative Pacemaker, Endocrine Surgery, Thyroidectomy, Ear Surgery, Abdominal Surgery, Nephrectomy, Joint Replacement, Neurologic Surgery, Vasectomy or Organ Transplant Social History SMOKING STATUS: Smoking status: Former smoker SECOND HAND EXPOSURE: second hand exposure: No ALCOHOL: Alcohol Intake: Never ALCOHOL FREQUENCY: Alcohol Intake Frequency: holidays/special occasions only HOUSING: Housing: House LIVES WITH: Lives With: Family Patient Portal Questionaires Social History Living Situation History Housing: House Housing Other:: Patient resides at home with parents. Tobacco History Smoking Status: Former smoker Second Hand Smoke Exposure: No Alcohol History Alcohol Intake: Never Alcohol Intake Frequency: holidays/special occasions only Substance Use History Substance Use: occasional marijuana use Domestic Abuse History Do You Feel Safe at Home: Yes Review of Systems Report any current symptoms Only answer those that you have currently: Past Medical History Past Medical History Have you ever been diagnosed with any of the following: Neurological Problems Cerebrovascular Accident (CVA): No Transient Ischemic Attacks (TIA): No Dementia: No Alzheimer's Disease: No Parkinson's Disease: No Brain Tumor: No Meningitis: No Seizures: No Epilepsy: No Multiple Sclerosis: No Cerebral Palsy: No Amyotrophic Lateral Sclerosis (ALS/Ana Gehrig's): No Guillain-[place] Syndrome: No Spina Bifida: No Paralysis: No Peripheral Neuropathy: Yes (Mild diabetic neropathy) Figueroa's Palsy: No Subdural Hematoma: No Migraine: No Head Trauma: No Spinal Cord Injury: No Traumatic Brain Injury: No Cardiology Problems Myocardial Infarction: No Cardiac Arrhythmia: No Atrial Fibrillation: No Angina: No Heart Murmur: No Coronary Artery Disease: No Atherosclerotic Heart Disease: No Peripheral Vascular Disease: No Hypercholesterolemia: No Aneurysm: No Congestive Heart Failure: No Congenital Heart Disease: No Valvular Heart Disease: No Rheumatic Fever: No Cardiomyopathy: No Edema: No Pericarditis: No Cellulitis: No Deep Vein Thrombosis: No Hypertension: Yes Hypotension: No Varicose Veins: No Respiratory Problems Chronic Obstructive Pulmonary Disease (COPD): No Asthma: No Bronchitis: No Emphysema: No Pneumonia: No Pulmonary Fibrosis: No Tuberculosis: No Pulmonary Embolism: No Pulmonary Edema: No Sleep Apnea: No Stomache/Intestinal Problems Hepatitis: No Cirrhosis: No Pancreatitis: No Celiac Disease: No Gall Bladder Disease: No Gastrointestinal Bleed: No Esophageal Varices: Yes Barahona's Esophagus: No Colitis: No Ulcerative Colitis: No Diverticulitis: No Diverticulosis: No Ulcer: No Colorectal Cancer: No Irritable Bowel: No Crohn's Disease: No Obstructive Bowel: No Hiatal Hernia: No Hemorrhoids: No Gastroesophageal Reflux Disease: Yes Obesity: No Genital/Urinary Problems Renal Disease: No Kidney Stones: No Polycystic Kidney Disease: No Neurogenic Bladder: No Inguinal Hernia: No Dialysis: No Prostate Cancer: No Benign Prostatic Hyperplasia: No Reproductive Problems Breast Cancer: No Genital Herpes: No Gonorrhea: No Syphilis: No Testicular Cancer: No Musculoskeletal Problems Muscular Dystrophy: No Myasthenia Gravis: No Marfan's Syndrome: No Bone Cancer: No Arthritis: No Rheumatoid Arthritis: No Osteoporosis: No Degenerative Disk Disease: No Gout: No Scoliosis: No Fibromyalgia: No Fractures: No Degenerative Joint Disease: No Osteomyelitis: No Poliovirus: No Head,Eye,Nose,Throat Problems Cataracts: Yes Glaucoma: No Blind: No Retinal Detachment: No Macular Degeneration: No Chronic Ear Infections: No Deafness: No Eye Prosthesis: No Endocrine Problems Diabetes Mellitus Type 1: Yes Diabetes Mellitus Type 2: No Hypoglycemia: No [place]'s Syndrome: No [place]'s Disease: No Hyperthyroidism: No Hypothyroidism: No Parathyroid Disease: No Pituitary Disease: No Systemic Lupus Erythematosus: No Syndrome of Inappropriate Antidiuretic Hormone: No Adrenal Disease: No Graves' Disease: No Blood Problems Anemia: No Leukemia: No Hemophilia: No Thalassemia: No Sickle Cell Disease: No Clotting Problems: No Psychologic Problems Schizophrenia: No Recreational Drug Use: Yes Bipolar Disorder: No Depression: Yes Anxiety: Yes Behavior Problems: No Self-Mutilation: No Attention Deficit Disorder: No Attention Deficit Hyperactivity Disorder: No Depression: No Post Traumatic Stress Disorder: No Eating Disorder: No Other Problems Hospitalization: Yes Down Syndrome: No Autism: No Developmental Delay: No Shingles: No Falls: No Blood Transfusions: No Blood Transfusion Reaction: No Anesthesia Reactions: No Organ Transplant: No Chemotherapy: No Radiation Therapy: No Hyperbaric Therapy: No MRSA: No VRSA: No Vancomycin-Resistant Enterococci: No Human Immunodeficiency Virus (HIV): No Chicken Pox: Yes Measles: No Mumps: No Rubella (Faroese Measles): No Pertussis: No Clostridium Difficile: No Lung Cancer: No Surgical History Pacemaker: No Thyroidectomy: No History of Present Illness HPI Narrative Meek Lyon is a 34-year-old male with past medical history of hypertension, type 1 diabetes mellitus on CGM, gastroparesis, and CKD stage IV who presents to [facility] on 05/29 for lab follow-up. 05/07: Last follow-up was on 09/2023 for the same and states that he had moved out of town but had recently moved back. Insulin regimen of 15 units Basaglar in morning and 1 unit NovoLog every 20 g of carbohydrates (previously 1:10). Continues to utilize freestyle myriam 3 CGM and phone summer showed A1c of 7.4% with time in range of 63% over the last 3 months. Otherwise, he states that he would like to follow-up with Dr. Sorensen as she was managing his blood pressure given his CKD and will send referral to establish care. He does state that he has had fungal infection of bilateral feet for a long time. Thus, will send referral to air support operations operator and antifungal rx. States that he also follows up with an float remover yearly. 05/29: Does not have any new complaints at this time. States that he continues to have gastroparesis and eats one meal on most days, and is already consuming small caliber meals. Has been complaint with his medications, including terbinafine for onychomycosis but does not report much improvement. States that he has not heard from Dr. Sorensen's office or podiatry. Otherwise, labs reviewed and noted discrepancy between A1c on CHEM panel and freestyle myriam 3 summer of 9.3% and 7.6% respectively. Time in range continues to be 65% over the last 3 months. Additionally, potassium noted to be 6.3 and asked patient to obtain repeat labs to confirm hyperkalemia and to call office afterwards to allow for prompt follow-up and management if potassium remains elevated. 07/02: States that he has been doing well since his last visit. As mentioned above, K noted to be 6.3 and repeat was 6.0. Veltassa was ordered but states that he was also able to see Dr. Sorensen approximately two weeks ago who also prescribed Veltassa. Patient states that when he went to pick it up from the pharmacy, it was not in the medications he was given but per pharmacy it was and now insurance will not cover it. Recommended patient to go back to his phar dev to see if either order was there, and if not then to call the office and let us know so we can re-order it. Otherwise, he was inquiring about seeing an carpenters and will send a referral to Dr. Dunn. He does not have any complaints at this time. Referral will be sent to endocrinology. 02/04/2025: Patient seen today for refills of medications. Otherwise states no complaints at this time and has been compliant with his medications. States that his blood sugars have been well-controlled and on review of his CGM, blood sugars average has been 160 with around 68 events of hypoglycemia in the past 3 months, but no ER visits for hypoglycemia or hypoglycemia nor any symptoms of hypoglycemia at home. He has been following up with automotive maintenance technician and no changes in medications at this time and will see his automotive maintenance technician next week. He has still not follow-up with carpenters. As his last labs were on 06/2024 we will reordered blood work for the patient and follow-up in 1 month. Refilled patient's insulin and prescribed amlodipine 5 mg daily for his blood pressure. Asked the patient to keep a log of his blood pressure for 1 week and when he follows up with a automotive maintenance technician he can show her his BP log and they can titrate his medication accordingly. Neurology Hospitalist discontinued his valsartan. Otherwise no other complaints at this time. BP today was elevated 164/96, but on repeat was 130s over 80s. Review of Systems Review of Systems Systems Reviewed: All systems reviewed, normal except as documented Objective/Exam Other Other exam information: General: A/O x3, no acute distress, well-nourished, well-developed Eyes: PERRL, EOMI. Anicteric, vision grossly intact. Ears: No ear pain, no ear discharge, Hearing grossly intact. Nose: No nasal discharge. Mouth/Throat: Moist mucous membranes, no redness, no lesions. Neck: Neck supple, non-tender, no cervical lymphadenopathy. Lungs: Clear JEFFRY to auscultation and percussion, No accessory muscle use. Cardio: Normal S1/S2, regular rhythm, no murmurs, no JVD or carotid bruits. Abdomen: Soft, non-tender, no palpable masses, peristalsis present, no guarding or rebound. Extremities: Symmetrical, no significant deformities, no peripheral edema , non-tender, peripheral pulses presents. Skin: No rashes, no lesions, warm to touch. Neuro: No focal neurological deficits. Psych: Cooperative, appropriate mood and effect. Assessment & Plan Diagnosis / Problem List (1) Hypertension: Status: Chronic Qualifiers: Hypertension type: unspecified Qualified Code(s): I10 - Essential (primary) hypertension Assessment & Plan: BP today was elevated 164/96, but on repeat was 130s over 80s. Plan: ? Started amlodipine 5mg qday ? Valsartan discontinued by his automotive maintenance technician (2) Type 1 diabetes mellitus: Status: Acute Qualifiers: Chronic kidney disease stage: stage 3 (moderate) Chronic kidney disease stage 3 subtype: stage 3a (GFR 45-59) Diabetes mellitus complication detail: with chronic kidney disease Diabetes mellitus complication status: with kidney complications Qualified Code(s): E10.22 - Type 1 diabetes mellitus with diabetic chronic kidney disease; N18.31 - Chronic kidney disease, stage 3a Assessment & Plan: Mr. Lyon noted to have A1c as high as 15.4% dating back to 2018 and I significantly improved to 7.4% within the last few months on current regimen with freestyle myriam 3. Patient expressing interest in referral to carpenters, and will send referral to Dr. Dunn. Plan: ? 18 units Basaglar every a.m, refilled 01/2025 ? 1 unit NovoLog for every 20 g of carbohydrates, refilled 01/2025 - Ordered A1c and Lipid panel - referred to endocrinology (3) Chronic kidney disease: Status: Chronic Qualifiers: Chronic kidney disease stage: stage 4 (severe) Qualified Code(s): N18.4 - Chronic kidney disease, stage 4 (severe) Plan: ? Following-up with automotive maintenance technician, Dr. Sorensen - Ordered CMP and microalbumin/creatinine ration Office Procedures [facility] Level of Care Nursing/Assessment Patient Status: Established Patient Nursing Assessment/Reassessment: Medication Reconciliation, Update PMH in EMR and Vital Signs Coordination of Care: Education Complex Pt/Fam Established Patient Charge Established Patient Point Assignment: 50
[2025-02-04 14:24] VITALS: BP 164/96; PULSE 84; RESP 18; TEMP 36.4; O2SAT 98
[2025-02-04 14:47] VITALS: BP 135/89
== END 2025-02-04 14:37 | disposition home or self-care (01) ==
LOC: HODAHC 14:00
PROVIDERS: Supervising Provider Internal Medicine
DX: Z76.0 Encounter for issue of repeat prescription (principal); E10.22 Type 1 diabetes mellitus with diabetic chronic kidney disease; I12.9 Hypertensive chronic kidney disease with stage 1 through stage 4 chronic kidney disease, or unspecified chronic kidney disease; N18.31 Chronic kidney disease, stage 3a; Z79.4 Long term (current) use of insulin
CPT/HCPCS: 99213; G0463